=== PATIENT | female | born 1940 | race Caucasian/White ===

== ENCOUNTER 2017-03-08 12:19 | Inpatient (IN) | payer MEDICARE, OTHER ==
[~2017-03-08] VITALS: Ht 152.4 cm; Wt 71.7 kg
[~2017-03-08 12:19] MED LIST: ALBUTEROL0.63 MG/3 INH; BROVANA15 MCG/2 M INH; BUDESONIDE0.5 MG/2 M NEB; CARTIA XT180 MG PO; LISINOPRIL10 MG PO; NITROFURANTOIN100 MG PO; OXYCODONE-ACET1 EAC1 PO; PANTOPRAZOLE SO40 MG PO; RESTORIL15 MG PO; SPIRIVA HANDIH18 MCG INH; SPIRIVA18 MCG INH; TUDORZA PRESS400 MCG INH; WARFARIN SODIUM5 MG PO; Z.0.COUMADIN3 MG PO; Z.0.COUMADIN4 MG PO; Z.0.NORCO 7.5-3251 E PO; Z.0.TEMAZEPAM30 MG PO; [UNRECOGNIZED DRUG - CODE] IH
[2017-03-08] MEDS ORDERED: ALBUTEROL/IPRATROPIUM 3 ML NEB NEB ONE (13:00)
[2017-03-08] MEDS ORDERED: METHYLPREDNISOLONE SOD SUCC 125 MG/2ML VIAL IV NR (13:30)
--- NOTE | 2017-03-08 14:35 | Diagnostic Imaging Report ---
PROCEDURE: X-RAY CHEST, TWO VIEWS COMPARISON: Chest x-ray 02/12/17, 11/23/2010 INDICATIONS: COPD FINDINGS: LUNGS: Diffusely hyperinflated consistent with COPD. Mass in the right midlung field measures 1.6 x1.3 cm and is stable, suggestive of a granuloma. There is prominence of the pulmonary vascular markings and mild interstitial prominence. No confluent infiltrates. PLEURA: No effusions or pneumothorax. HEART \T\ MEDIASTINUM: The heart is enlarged. Pulmonary arteries are prominent. Several lower median sternotomy wires are fractured. BONES \T\ SOFT TISSUES: The bones are diffusely demineralized. There is wedging of a midthoracic vertebral body that appears chronic. No additional compression deformities. Surgical clips in the lower neck are stable. CONCLUSION: Pulmonary hyperinflation consistent with COPD. Cardiomegaly and pulmonary artery hypertension with pulmonary vascular congestion. Dictated by: Adam Mejia M.D. on 03/08/2017 at 14:42 Electronically approved by: Adam Mejia M.D. on 03/08/2017 at 14:42
[2017-03-08 16:43] LABS: BASOPHILS % 0.1 % (0.0-1.0); HEMATOCRIT 35.5 % (34.2-44.1); LYMPHOCYTES # (AUTO) 0.4 (1.0-3.2); LYMPHOCYTES % 4.5 % (18.0-39.1); MEAN CORPUSCULAR HEMOGLOBIN 26.7 pg (28-32); MEAN CORPUSCULAR VOLUME 86.2 fL (81-99); MONOCYTES # (AUTO) 0.6 (0.2-0.8); MONOCYTES % 7.3 % (4.4-11.3); NEUTROPHILS # (AUTO) 6.9 (2.1-6.9); NEUTROPHILS % 87.7 % (38.7-80.0); PLATELET COUNT 393 x10e3/uL (140-360); RED BLOOD COUNT 4.12 x10e6/uL (3.6-5.1); RED CELL DISTRIBUTION WIDTH 16.9 % (11.7-14.4)
[2017-03-08 16:55] LABS: INR 2.72; PROTHROMBIN TIME 30.3 seconds (11.9-14.5)
[2017-03-08 16:56] LABS: PARTIAL THROMBOPLASTIN TIME 52.4 seconds (23.8-35.5)
[2017-03-08] MEDS ORDERED: OSELTAMIVIR PHOSPHATE 75 MG CAP PO ONE (17:00)
[2017-03-08 17:06] LABS: B-TYPE NATRIURETIC PEPTIDE2 33.6 pg/mL (0-100)
[2017-03-08] MEDS ORDERED: AZITHROMYCIN 500MG/NS 250 ML 250 ML IV STA (17:13)
[2017-03-08] MEDS ORDERED: CEFTRIAXONE SOD 1 GM VIAL IM ONE (17:15)
[2017-03-08 17:20] LABS: ALANINE AMINOTRANSFERASE 10 IU/L (0-55); ALBUMIN 3.1 g/dL (3.5-5.0); ALBUMIN/GLOBULIN RATIO 0.9 (0.8-2.0); ALKALINE PHOSPHATASE 103 IU/L (40-150); ANION GAP 14.6 mmol/L (8-16); BLOOD UREA NITROGEN 21 mg/dL (7-26); BUN/CREATININE RATIO 27 (6-25); CALCIUM 8.2 mg/dL (8.4-10.2); CARBON DIOXIDE 30 mmol/L (22-29); CHLORIDE 97 mmol/L (98-107); CREATINE KINASE 85 IU/L (29-168); CREATININE, SERUM 0.77 mg/dL (0.57-1.11); EST GLOMERULAR FILTRATION RATE > 60 ML/MIN (60-); GLUCOSE 119 mg/dL (74-118); POTASSIUM 4.6 mmol/L (3.5-5.1); SODIUM 137 mmol/L (136-145)
[2017-03-08 17:26] LABS: TROPONIN I 0.035 ng/mL (0-0.300)
[2017-03-08] MEDS ORDERED: METHYLPREDNISOLONE SOD SUCC 125 MG/2ML VIAL IV ONE (17:30)
[2017-03-08] MEDS ORDERED: ALBUTEROL/IPRATROPIUM 3 ML NEB ONE (17:36)
[2017-03-08] MEDS ORDERED: AZITHROMYCIN 250 MG TAB PO SCH (17:45)
[2017-03-08] MEDS ORDERED: ALPRAZOLAM 0.25 MG TAB PO ONE (19:30)
[2017-03-08] MEDS: AZITHROMYCIN 500MG/NS 250 ML 250 ML IV SCH (19:35)
[2017-03-08] MEDS: ALBUTEROL SULF 0.083% NEB SOLN 3 ML NEB INH SCH (20:35)
[2017-03-08] MEDS: METHYLPREDNISOLONE SOD SUCC 125 MG/2ML VIAL IV SCH (21:10)
[2017-03-08] MEDS: CEFTRIAXONE SOD 1 GM VIAL IV SCH (21:20)
[2017-03-08 22:28] VITALS: BP 131/64
[2017-03-08] MEDS: TEMAZEPAM 15 MG CAP PO SCH (23:10)
[2017-03-09] VITALS (9 sets, daily range): BP systolic 122–136; BP diastolic 63–78
[2017-03-09 06:32] LABS: HEMATOCRIT 31.2 % (34.2-44.1); HEMOGLOBIN 9.5 g/dL (12.0-16.0); LYMPHOCYTES # (AUTO) 0.2 (1.0-3.2); LYMPHOCYTES % 3.8 % (18.0-39.1); MEAN CORPUSCULAR HEMOGLOBIN 26.6 pg (28-32); MEAN CORPUSCULAR HGB CONC 30.4 g/dL (31-35); MEAN CORPUSCULAR VOLUME 87.4 fL (81-99); MONOCYTES # (AUTO) 0.1 (0.2-0.8); MONOCYTES % 1.9 % (4.4-11.3); NEUTROPHILS % 93.8 % (38.7-80.0); PLATELET COUNT 277 x10e3/uL (140-360); RED BLOOD COUNT 3.57 x10e6/uL (3.6-5.1)
[2017-03-09 06:59] LABS: ALANINE AMINOTRANSFERASE 11 IU/L (0-55); ALBUMIN 2.7 g/dL (3.5-5.0); ALBUMIN/GLOBULIN RATIO 0.8 (0.8-2.0); ALKALINE PHOSPHATASE 86 IU/L (40-150); ANION GAP 12.7 mmol/L (8-16); BLOOD UREA NITROGEN 19 mg/dL (7-26); BUN/CREATININE RATIO 26 (6-25); CALCIUM 8.2 mg/dL (8.4-10.2); CARBON DIOXIDE 31 mmol/L (22-29); CHLORIDE 98 mmol/L (98-107); CREATININE, SERUM 0.74 mg/dL (0.57-1.11); EST GLOMERULAR FILTRATION RATE > 60 ML/MIN (60-); GLUCOSE 243 mg/dL (74-118); POTASSIUM 4.7 mmol/L (3.5-5.1); SODIUM 137 mmol/L (136-145)
[2017-03-09] MEDS: ALBUTEROL SULF 0.083% NEB SOLN 3 ML NEB INH SCH (08:40)
[2017-03-09] MEDS: BUDESONIDE 0.5MG/2 ML NEB NEB SCH ×2 (08:45→19:00)
[2017-03-09] MEDS: TIOTROPIUM 18 MCG INH POWDER INH SCH (08:50)
[2017-03-09] MEDS: ARFORMOTEROL TARTRATE 15 MCG INH SCH ×3 (09:00→19:55)
[2017-03-09] MEDS: OXYCODONE/ACETAMINOPHEN 5-325 1 EACH TABLET PO PRN (09:12)
[2017-03-09] MEDS: DILTIAZEM HCL 180 MG CAP CD PO SCH (09:26)
[2017-03-09] MEDS: CEFTRIAXONE SOD 1 GM VIAL IV SCH (09:26)
[2017-03-09] MEDS: METHYLPREDNISOLONE SOD SUCC 125 MG/2ML VIAL IV SCH (09:26)
[2017-03-09] MEDS: LISINOPRIL 10 MG TAB PO SCH ×2 (09:27→18:07)
[2017-03-09] MEDS: PANTOPRAZOLE SOD 40 MG TABEC PO SCH (09:27)
[2017-03-09] MEDS: OSELTAMIVIR PHOSPHATE 75 MG CAP PO SCH ×2 (09:27→18:07)
[2017-03-09] MEDS ORDERED: WARFARIN SOD 5 MG TAB PO SCH (17:00)
[2017-03-09 17:26] LABS: INR 3.34; PROTHROMBIN TIME 35.7 seconds (11.9-14.5)
[2017-03-09] MEDS ORDERED: AZITHROMYCIN 250 MG TAB PO SCH (17:45)
[2017-03-09] MEDS: AZITHROMYCIN 500MG/NS 250 ML 250 ML IV SCH (18:09)
[2017-03-09] MEDS: METHYLPREDNISOLONE SOD SUCC 40 MG/ML VIAL IV SCH (21:55)
[2017-03-09] MEDS: TEMAZEPAM 15 MG CAP PO SCH (21:55)
[2017-03-10] VITALS: BP 120/81
[2017-03-10 04:00] VITALS: BP 136/63
[2017-03-10 07:36] LABS: HEMATOCRIT 26.6 % (34.2-44.1); LYMPHOCYTES # (AUTO) 0.3 (1.0-3.2); MEAN CORPUSCULAR HEMOGLOBIN 26.6 pg (28-32); MEAN CORPUSCULAR HGB CONC 30.1 g/dL (31-35); MEAN CORPUSCULAR VOLUME 88.4 fL (81-99); MONOCYTES # (AUTO) 0.3 (0.2-0.8); MONOCYTES % 4.6 % (4.4-11.3); NEUTROPHILS # (AUTO) 6.1 (2.1-6.9); NEUTROPHILS % 89.8 % (38.7-80.0); PLATELET COUNT 263 x10e3/uL (140-360); RED BLOOD COUNT 3.01 x10e6/uL (3.6-5.1); RED CELL DISTRIBUTION WIDTH 16.1 % (11.7-14.4)
[2017-03-10 07:58] LABS: INR 3.13; PROTHROMBIN TIME 33.9 seconds (11.9-14.5)
[2017-03-10 08:10] LABS: ALANINE AMINOTRANSFERASE 18 IU/L (0-55); ALBUMIN 2.4 g/dL (3.5-5.0); ALBUMIN/GLOBULIN RATIO 0.8 (0.8-2.0); ALKALINE PHOSPHATASE 75 IU/L (40-150); ANION GAP 10.3 mmol/L (8-16); BLOOD UREA NITROGEN 26 mg/dL (7-26); BUN/CREATININE RATIO 36 (6-25); CARBON DIOXIDE 35 mmol/L (22-29); CHLORIDE 98 mmol/L (98-107); CREATININE, SERUM 0.73 mg/dL (0.57-1.11); EST GLOMERULAR FILTRATION RATE > 60 ML/MIN (60-); GLUCOSE 251 mg/dL (74-118); POTASSIUM 4.3 mmol/L (3.5-5.1); SODIUM 139 mmol/L (136-145)
[2017-03-10 08:41] VITALS: BP 110/56
[2017-03-10] MEDS: LISINOPRIL 10 MG TAB PO SCH ×2 (09:00→16:47)
[2017-03-10] MEDS: PANTOPRAZOLE SOD 40 MG TABEC PO SCH (09:00)
[2017-03-10] MEDS: DILTIAZEM HCL 180 MG CAP CD PO SCH (09:00)
[2017-03-10] MEDS: OSELTAMIVIR PHOSPHATE 75 MG CAP PO SCH ×2 (09:00→16:47)
[2017-03-10] MEDS: METHYLPREDNISOLONE SOD SUCC 40 MG/ML VIAL IV SCH ×2 (09:00→21:00)
[2017-03-10] MEDS: TIOTROPIUM 18 MCG INH POWDER INH SCH ×2 (09:15→11:19)
[2017-03-10] MEDS: BUDESONIDE 0.5MG/2 ML NEB NEB SCH ×2 (09:15→19:40)
[2017-03-10] MEDS: ALBUTEROL SULF 0.083% NEB SOLN 3 ML NEB INH PRN ×2 (09:15→19:40)
[2017-03-10] MEDS: OXYCODONE/ACETAMINOPHEN 5-325 1 EACH TABLET PO PRN (09:28)
[2017-03-10] MEDS: ARFORMOTEROL TARTRATE 15 MCG INH SCH ×2 (11:20→16:31)
[2017-03-10 12:00] VITALS: BP 117/58
[2017-03-10 16:00] VITALS: BP 111/68
[2017-03-10] MEDS ORDERED: SODIUM CHLORIDE 0.9% 250ML 250 ML ONE (16:44)
[2017-03-10] MEDS: AZITHROMYCIN 500MG/NS 250 ML 250 ML IV SCH (17:40)
[2017-03-10 20:00] VITALS: BP 106/62
[2017-03-10] MEDS: TEMAZEPAM 15 MG CAP PO SCH (21:00)
[2017-03-11] VITALS: BP 112/63
[2017-03-11 01:58] VITALS: BP 112/63
[2017-03-11 04:00] VITALS: BP 124/66
[2017-03-11] MEDS: OXYCODONE/ACETAMINOPHEN 5-325 1 EACH TABLET PO PRN (04:24)
--- NOTE | 2017-03-11 05:55 | Consultation ---
DATE OF CONSULTATION: REQUESTING PHYSICIAN: Dr. Cesar Washburn. REASON FOR CONSULT: PAD. HISTORY OF PRESENT ILLNESS: Ms. Paz is a 77-year-old lady with past medical history as listed below, reportedly has been short of breath off and on for the last few days. 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 She was admitted with exacerbation of COPD directly from Dr. Cesar Washburn's office. She denies any chest pain or palpitations. She denies any fever. Has some scant amount of expectoration. She recently had a CT of her legs which revealed severe PAD. Patient states that she does not want to undergo any peripheral angiogram at the current time. She was recently admitted to the hospital at which time if there was any kind of invasive workup including colonoscopy. REVIEW OF SYMPTOMS CONSTITUTIONAL: Has fatigue and weakness. HEENT: No headache, blurring of vision, seizures, or syncope. CARDIOVASCULAR: No chest pain. Has dyspnea. No orthopnea or PND. RESPIRATORY: Has cough, scant amount of expectoration. No fever. GI: No abdominal pain, vomiting, or diarrhea. : No dysuria, frequency, or incontinence. ALLERGIES: CODEINE, PENICILLIN, AND CLOPIDOGREL. MEDICATIONS: See list. PAST MEDICAL HISTORY 1. History of COPD. 2. History of hypertension. 3. History of anemia. 3. History of PAD. 4. History of aortic valve replacement, prosthetic. 5. History of GI bleed in December 2016. PAST SURGICAL HISTORY: History of aortic valve replacement, 2010. SOCIAL HISTORY: Does not smoke or drink. FAMILY HISTORY: Noncontributory. PHYSICAL EXAMINATION GENERAL: Moderately built and nourished lady, alert, oriented, not in any obvious distress. VITALS: Heart rate is 79, blood pressure 110/56, respiratory rate 16, and temperature is 97.5. HEENT: Atraumatic. NECK: No JVD, bruit, thyromegaly, or lymphadenopathy. CARDIOVASCULAR: First and second heart sounds heard. Prosthetic heart sounds appreciated. CHEST: Decreased air entry at the bases. No adventitious sounds appreciated. ABDOMEN: Distended, nontender. EXTREMITIES: No edema. LABORATORY DATA: Sodium is 139, potassium 4.3, chloride is 98, bicarb is 35, BUN is 26, and creatinine 0.7. Hemoglobin 8.2, hematocrit 26.6, platelets are 263,000. White count is 6.7. EKG shows sinus rhythm, 92 beats per minute, normal axis, normal intervals, no acute ST-T changes. IMPRESSIONS 1. Chronic obstructive pulmonary disease exacerbation. 2. History of prosthetic aortic valve. 3. Peripheral arterial disease. 4. History of gastrointestinal bleed. 5. Anemia. 6. History of hypertension. PLAN 1. Continue with antibiotics and steroids. 2. She had an echocardiogram done recently. 3. She has severe PAD on her CT scan. She was supposed to have peripheral angiogram as an outpatient. Discussed about having a peripheral angiogram as an inpatient. Patient does not want to undergo the procedure at the current time. 4. Continue with the other medications. 5. INR is 3.1. 6. Further cardiac workup depending on clinical course. Discussed my impression, plan, and management with patient; she understands. As always, I appreciate and thank you very much for your referral. Job#: [id number]
[2017-03-11 06:40] LABS: INR 2.03
[2017-03-11] MEDS: ALBUTEROL SULF 0.083% NEB SOLN 3 ML NEB INH PRN (07:00)
[2017-03-11] MEDS: BUDESONIDE 0.5MG/2 ML NEB NEB SCH (07:14)
--- NOTE | 2017-03-11 07:23 | Progress Note ---
DATE: PULMONARY/CRITICAL CARE PROGRESS NOTE SUBJECTIVE: The patient feels much better. She has less congestion and less cough. OBJECTIVE: VITAL SIGNS: Stable. HEENT: Shows no facial swelling or erythema. CARDIAC: Reveals a regular rate and rhythm with a normal S1 and S2. There are no murmurs or rubs. LUNGS: Auscultation of the lungs reveals clear breath sounds bilaterally. ABDOMEN: Soft and nontender. There is no rebound or guarding. IMPRESSION: 1. Influenza with viral pneumonia. 2. Chronic obstructive pulmonary disease with acute exacerbation. 3. Peripheral vascular disease with claudication bilaterally. 4. Chronic systolic congestive heart failure. 5. Paroxysmal atrial fibrillation. 6. Hypertension. PLAN: 1. Continue the current antimicrobial regimen. 2. Patient was evaluated by cardiology. 3. Tentative discharge tomorrow. Job#: [id number]
[2017-03-11 07:30] VITALS: BP 124/66
--- NOTE | 2017-03-11 07:35 | Progress Note ---
DATE: PULMONARY/CRITICAL CARE PROGRESS NOTE SUBJECTIVE: Patient was transferred out of the ICU yesterday. She was on BiPAP last night, but is now on a nasal cannula. She complains of a dry mouth and is bothered by her NG tube. She is more awake. OBJECTIVE: VITAL SIGNS: The blood pressure is 110/60 and the saturation is 96% on 2 L. The pulse is 86. HEENT: Shows no facial swelling or erythema. The nasal mucosa is normal. The oropharynx is normal. She does have an NG tube in place. CARDIAC: Reveals a regular rate and rhythm with a normal S1 and S2. There are no murmurs or rubs. LUNGS: Auscultation of the lungs reveals clear breath sounds bilaterally. There is no wheezing. ABDOMEN: Soft and nontender. There is no rebound or guarding. EXTREMITIES: Shows no leg edema or calf tenderness. There is no cyanosis or clubbing. SKIN: Shows no rashes. IMPRESSION: 1. Rhgok-nt-kygxtux systolic congestive heart failure. 2. 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 3. Chronic obstructive pulmonary disease. 4. Cirrhosis of unclear etiology. 5. Moderate protein-calorie malnutrition. 6. Possible obstructive sleep apnea. PLAN: 1. Continue BiPAP at night. The patient can use oxygen during the day. 2. Continue current cardiac regimen. 3. Decrease diuretics because of the increasing creatinine. 4. Swallowing evaluation. 5. If okay with Dr. Boudreaux, remove NG tube and begin mechanical soft diet. 6. Physical therapy evaluation. Job#: [id number]
[2017-03-11 08:14] VITALS: BP 111/75
[2017-03-11] MEDS: OSELTAMIVIR PHOSPHATE 75 MG CAP PO SCH (09:00)
[2017-03-11] MEDS: LISINOPRIL 10 MG TAB PO SCH (09:00)
[2017-03-11] MEDS: PANTOPRAZOLE SOD 40 MG TABEC PO SCH (09:00)
[2017-03-11] MEDS: ARFORMOTEROL TARTRATE 15 MCG INH SCH (09:00)
[2017-03-11] MEDS: DILTIAZEM HCL 180 MG CAP CD PO SCH (09:00)
[2017-03-11] MEDS ORDERED: TAMIFLU75 MG PO (10:14)
[2017-03-11] MEDS ORDERED: AZITHROMYCIN250 MG PO (10:14)
[2017-03-11] MEDS ORDERED: WARFARIN SOD 5 MG TAB PO SCH (17:00)
== END 2017-03-11 11:25 | disposition home or self-care (01) | DRG 190 ==
LOC: ER 12:19 → ERHOLD 18:30 → IMCU 21:06 → OBSVTOIN 03-09 13:04 → MED/SURG2 03-10 11:05
PROVIDERS: ADMIT Internal Medicine Critical Care Medicine; ATTEND Internal Medicine Critical Care Medicine
DX: J44.0 Chronic obstructive pulmonary disease with (acute) lower respiratory infection (principal); J11.08 Influenza due to unidentified influenza virus with specified pneumonia; J12.9 Viral pneumonia, unspecified; E44.0 Moderate protein-calorie malnutrition; I11.0 Hypertensive heart disease with heart failure; I50.9 Heart failure, unspecified; I48.0 Paroxysmal atrial fibrillation; J44.1 Chronic obstructive pulmonary disease with (acute) exacerbation; I25.10 Atherosclerotic heart disease of native coronary artery without angina pectoris; Z79.01 Long term (current) use of anticoagulants; Z95.2 Presence of prosthetic heart valve; I73.9 Peripheral vascular disease, unspecified; D64.9 Anemia, unspecified; G47.33 Obstructive sleep apnea (adult) (pediatric); K74.60 Unspecified cirrhosis of liver; Z66 Do not resuscitate; Z86.73 Personal history of transient ischemic attack (TIA), and cerebral infarction without residual deficits
CPT/HCPCS: 36415; 71020; 80053; 82550; 82553; 83605; 83880; 84484; 85025; 85610; 85730; 87040; 87070; 87205; 87400; 93005; 94640; 96360; 99284; G0378; J0456; J0696; J2920; J2930; J7050

== ENCOUNTER 2017-06-22 11:45 | Inpatient (IN) | payer MEDICARE, OTHER ==
[~2017-06-22] VITALS: Ht 152.4 cm; Wt 67.6 kg
[~2017-06-22 11:45] MED LIST changes: +AZITHROMYCIN250 MG PO; +TAMIFLU75 MG PO
--- OUTSIDE RECORDS SUMMARY | 2017-06-22 11:48 | XMS REPORT | Summary of Care ---
Author Author LEVI Osborne, RICHA Organization Unknown Address Unknown Phone Unavailable Care Team Providers Care Tannery Worker Name Role Phone DIMAS Meléndez.Willis, JASMINA Unavailable Unavailable LOWShy-COTTRELL D.O., RICHA Unavailable Unavailable YEH D.O., CARLTON-DORA Unavailable Unavailable YEH DO [facility], CARLTON-DORA Unavailable Unavailable Unavailable Unavailable Functional Status Name Dates Details Functional status health issues are not documented Status: Name Dates Details Cognitive status health issues are not documented Status: Problems Name Dates Details Leg cramps (729.82, R25.2) Status: Active Need for Tdap vaccination (V06.1, Z23) Status: Active Atrial fibrillation (427.31, I48.91) Status: Active Urinary tract infection (599.0, N39.0) Status: Active Anemia, unspecified type (285.9, D64.9) Status: Active Wound of skin (782.9, R23.8) Status: Active Hip pain, bilateral (719.45, M25.551) Status: Active Gastro-esophageal reflux (530.81, K21.9) Status: Active Chronic insomnia (780.52, F51.04) Status: Active Skin rash (782.1, R21) Status: Active Chronic obstructive pulmonary disease, unspecified COPD type (496, J44.9) Status: Active Impaired mobility and ADLs (799.89, Z74.09) Status: Active History of skin cancer (V10.83, Z85.828) Status: Active Medications Name Dates Details Oxycodone-Acetaminophen 5-325 MG/5ML Oral Solution TAKE 5 ML EVERY 6 HOURS. * Start : 23-Jan-2017 Active Temazepam 30 MG Oral Capsule TAKE 1 CAPSULE BY MOUTH EVERY DAY AT BEDTIME * Quantity: 30 Refills: 1 VICIKE-COTTRELL D.O., RICHA * Start : 23-Jan-2017 Active LORazepam 0.5 MG Oral Tablet TAKE 1 TABLET 3 TIMES DAILY NEEDED. * Refills: 0 * Start : 23-Jan-2017 Active Cartia XT 180 MG Oral Capsule Extended Release 24 Hour TAKE ONE CAPSULE BY MOUTH DAILY * Quantity: 90 Refills: 0 MELODY WU D.O. * Start : 10-May-2017 Active Lisinopril 10 MG Oral Tablet TAKE 1 TABLET DAILY * Refills: 0 * Start : 23-Jan-2017 Active 15 Tablet Bottle Warfarin Sodium 5 MG Oral Tablet TAKE 1 TABLET SATURDAY, SATURDAY, SATURDAY, TAKE 1/2 TABLET SATURDAY, SATURDAY, SATURDAY, SATURDAY * Refills: 0 * Start : 23-Jan-2017 Active 90 Tablet Bottle Brovana 15 MCG/2ML Inhalation Nebulization Solution INHALE THE CONTENTS OF 1 VIAL TWO TIMES DAILY IN THE MORNING AND EVENING VIA STANDARD JET NEBULIZER DIRECTED. * Refills: 0 * Start : 23-Jan-2017 Active 30 x 2 ML Plas Cont Albuterol Sulfate 0.63 MG/3ML Inhalation Nebulization Solution USE 1 UNIT DOSE VIA NEBULIZER 4 TIMES A DAY NEEDED * Refills: 0 * Start : 23-Jan-2017 Active 25 x 3 ML Plas Cont Ferrous Sulfate 325 (65 Fe) MG Oral Tablet TAKE 1 TABLET TWICE DAILY * Quantity: 30 Refills: 0 RICHA SIMS D.O. * Start : 21-Feb-2017 Active Tylenol CAPS USE NEEDED * Refills: 0 Active Tums CHEW take as needed * Refills: 0 Active MiraLax Oral Packet 2-3 TIMES A WEEK NEEDED * Refills: 0 Active Cough SYRP as needed * Refills: 0 Active Famotidine 40 MG Oral Tablet TAKE 1 TABLET AT BEDTIME. * Quantity: 30 Refills: 5 JASMINA COCHRAN N.P. * Start : 07-May-2017 Active Budesonide SUSP USE 1 UNIT DOSE VIA NEBULIZER TWICE DAILY * Refills: 0 Active Spiriva HandiHaler 18 MCG Inhalation Capsule INHALE CONTENTS OF 1 CAPSULE ONCE DAILY. * Quantity: 30 Refills: 5 RICHA SIMS D.O. * Start : 18-Jun-2017 Active Allergies and Adverse Reactions Name Dates Details Penicillins (Allergy) Status: Active Past Medical History Name Dates Details History of essential hypertension (V12.59, Z86.79) Status: Resolved Procedures Procedure Dates Details History of Heart valve replacement Completed History of Lumpectomy Completed History of Cataract surgery Completed History of Hysterectomy Completed Immunization Name Dates Details Influenza on: 19-Nov-2016 Prevnar 13 Intramuscular Suspension Lot #: [id number] on: 23-Jan-2017 Family History Name Dates Details Family history of asthma (V17.5, Z82.5) Status: Active Name Dates Details Family history of diabetes mellitus (V18.0, Z83.3) Status: Active Family history of asthma (V17.5, Z82.5) Status: Active Name Dates Details Family history of diabetes mellitus (V18.0, Z83.3) Status: Active Name Dates Details Family history of hypertension (V17.49, Z82.49) Status: Active Family history of asthma (V17.5, Z82.5) Status: Active Social History Name Dates Details - Status: Name Dates Details Former smoker Vital Signs Date Test Result Details [id number] BP Systolic 124 mm[Hg] Status: Comments: Location: LUE; Position: Sitting BP Diastolic 67 mm[Hg] Status: Comments: Location: LUE; Position: Sitting Height 61 in Status: Weight 147.0625 lb Status: Body Mass Index Calculated 27.79 kg/m2 Status: Body Surface Area Calculated 1.66 m2 Status: Temperature 98.4 f Status: Comments: Method: Temporal Heart Rate 81 /min Status: Respiration Rate 20 /min Status: Physical Findings 2 Status: Comments: Pain Scale Physical Findings 2 Status: Comments: Oxygen Flow Rate - LPM Results Date Description Value Details Results not documented Plan of Care Name Dates Details Planned Observations Planned Goals not documented Interventions Provided Medication Changes* Ferrous Sulfate 325 (65 Fe) MG Oral Tablet - Renew * Spiriva HandiHaler 18 MCG Inhalation Capsule - Start * Temazepam 30 MG Oral Capsule - Renew Supplies* ROLLATOR; To Be Done: 18 Jun 2017 * SHOWER CHAIR; To Be Done: 18 Jun 2017 Instructions Name Dates Details Instructions not documented Encounters Appointment; MELODY WU D.O. Encounter Diagnosis: Problem not documented On: 23-Jan-2017 14:45 Appointment; MELODY WU D.O. Encounter Diagnosis: Problem not documented On: 11-Feb-2017 14:00 Appointment; YEH, CARLTON-DORA, D.O. Encounter Diagnosis: Problem not documented On: 21-Feb-2017 9:15 Appointment; Carlos Andrews M.D. Encounter Diagnosis: Problem not documented On: 05-Mar-2017 9:45 Appointment; ALISHA RUSSELL M.D. Encounter Diagnosis: Problem not documented On: 05-Mar-2017 13:00 Appointment; JASMINA COCHRAN NP Encounter Diagnosis: Problem not documented On: 07-May-2017 13:30 Appointment; MELODY WU D.O. Encounter Diagnosis: Problem not documented On: 18-Jun-2017 14:00
--- OUTSIDE RECORDS SUMMARY | 2017-06-22 11:48 | XMS REPORT ---
Author [facility] Address Unknown Phone Unavailable Care Team Providers Care Trials Manager Name Role Phone KINGSTONOMERO GILLESPIE Unavailable Unavailable FLETCHER ARAIZA Unavailable Unavailable Problems This patient has no known problems. Allergies, Adverse Reactions, Alerts This patient has no known allergies or adverse reactions. Medications This patient has no known medications. Results Test Description Test Time Test Comments Text Results Atomic Results Result Comments CHEST 2 VIEWS [place] [address] Patient Name: HOWARD MUHAMMAD MR #: [id number] : 1940 Age/Sex: 77/F Req #: [id number] Adm Physician: Ordered by: BEATRICE [employer] SUPERVISOR Report #: [id number] Location: ER Room/Bed: Procedure: [id number] DX/CHEST 2 VIEWS Exam Date: Exam Time: REPORT STATUS: Signed PROCEDURE: X-RAY CHEST, TWO VIEWS COMPARISON: Chest x-ray 02/12/17, 11/23/2010 INDICATIONS: COPD FINDINGS: LUNGS: Diffusely hyperinflated consistent with COPD. Mass in the right midlung field measures 1.6 x1.3 cm and is stable, suggestive of a granuloma. There is prominence of the pulmonary vascular markings and mild interstitial prominence. No confluent infiltrates. PLEURA: No effusions or pneumothorax. HEART T MEDIASTINUM: The heart is enlarged. Pulmonary arteries are prominent. Several lower median sternotomy wires are fractured. BONES T SOFT TISSUES: The bones are diffusely demineralized. There is wedging of a midthoracic vertebral body that appears chronic. No additional compression deformities. Surgical clips in the lower neck are stable. CONCLUSION: Pulmonary hyperinflation consistent with COPD. Cardiomegaly and pulmonary artery hypertension with pulmonary vascular congestion. Dictated by: Kt Mejia M.D. on 03/08/2017 at 14:42 Electronically approved by: Kt Mejia M.D. on 03/08/2017 at 14:42 Dictated By: KT MEJIA MD [id number] Transcribed By : CATHLEEN on 03/08/17 1442 COPY TO: BEATRICE [employer] SUPERVISOR CHEST SINGLE (PORTABLE) [place] [address] Patient Name: HOWARD MUHAMMAD MR #: [id number] : 1940 Age/Sex: 77/F Req #: [id number] Adm Physician: Ordered by: BEATRICE EASLEY MD Report #: [id number] Location: ER Room/Bed: ___ Procedure: [id number] DX/CHEST SINGLE (PORTABLE) Exam Date: 02/12/17 Exam Time: 2014 REPORT STATUS: Signed Examination: Single AP view of the chest. COMPARISON: None. INDICATION : Shortness of breath IMPRESSION: 1. Lines and Tubes: Multiple broken sternotomy wires. 2. No edema or consolidation. 1.4 x 1.4 cm nodular density in the right lower lung, which is indeterminate.Recommend nonemergent contrast-enhanced chest CT for further evaluation. 3. Mildly enlarged cardiac silhouette and prominence of the central pulmonary arteries, in part accentuated by AP projection. 4. No pleural effusion or pneumothorax. Signed by: Dr Kyle Marx MD on 02/12/2017 10:23 PM Dictated By: YKLE MARX MD 22 Transcribed By: YUDY on 02/12/172222 COPY TO: BEATRICE EASLEY MD
[2017-06-22] MEDS ORDERED: METHYLPREDNISOLONE SOD SUCC 125 MG/2ML VIAL IV ONE (12:30)
[2017-06-22] MEDS ORDERED: ALBUTEROL/IPRATROPIUM 3 ML NEB NEB ONE (13:00)
[2017-06-22 14:06] LABS: BASOPHILS # (AUTO) 0.1 (0.0-0.1); BASOPHILS % 0.3 % (0.0-1.0); EOSINOPHILS % 0.1 % (0.0-6.0); HEMATOCRIT 35.1 % (34.2-44.1); HEMOGLOBIN 11.4 g/dL (12.0-16.0); LYMPHOCYTES # (AUTO) 0.5 (1.0-3.2); LYMPHOCYTES % 2.5 % (18.0-39.1); MEAN CORPUSCULAR HEMOGLOBIN 27.3 pg (28-32); MEAN CORPUSCULAR HGB CONC 32.5 g/dL (31-35); MEAN CORPUSCULAR VOLUME 84.2 fL (81-99); MONOCYTES # (AUTO) 1.3 (0.2-0.8); MONOCYTES % 6.4 % (4.4-11.3); NEUTROPHILS # (AUTO) 18.6 (2.1-6.9); NEUTROPHILS % 90.3 % (38.7-80.0); PLATELET COUNT 375 x10e3/uL (140-360); RED BLOOD COUNT 4.17 x10e6/uL (3.6-5.1); RED CELL DISTRIBUTION WIDTH 18.7 % (11.7-14.4)
[2017-06-22 14:15] LABS: INR 1.75; PROTHROMBIN TIME 19.2 seconds (11.9-14.5)
[2017-06-22 14:16] LABS: PARTIAL THROMBOPLASTIN TIME 39.9 seconds (23.8-35.5)
[2017-06-22 14:25] LABS: ALBUMIN 2.9 g/dL (3.5-5.0); ALBUMIN/GLOBULIN RATIO 0.6 (0.8-2.0); ALKALINE PHOSPHATASE 122 IU/L (40-150); BLOOD UREA NITROGEN 13 mg/dL (7-26); BUN/CREATININE RATIO 16 (6-25); CALCIUM 9.5 mg/dL (8.4-10.2); CARBON DIOXIDE 28 mmol/L (22-29); CHLORIDE 97 mmol/L (98-107); CREATININE, SERUM 0.79 mg/dL (0.57-1.11); EST GLOMERULAR FILTRATION RATE > 60 ML/MIN (60-); GLUCOSE 125 mg/dL (74-118); SODIUM 136 mmol/L (136-145)
[2017-06-22 14:27] LABS: ALANINE AMINOTRANSFERASE < 6 IU/L (0-55)
[2017-06-22 14:55] LABS: CREATINE KINASE 42 IU/L (29-168)
--- NOTE | 2017-06-22 15:11 | Diagnostic Imaging Report ---
EXAMINATION: CHEST SINGLE (PORTABLE) INDICATION: Low oxygen. Shortness of breath. COMPARISON: Chest x-ray 03/08/2017. 11/23/2010. FINDINGS: AP view TUBES and LINES: Median sternotomy wires are intact. LUNGS: Lungs are hypo-inflated when compared to prior examination. Baseline emphysematous changes. 1.3 cm calcified granuloma in the right lateral lung base is unchanged. There are bibasilar atelectasis. Left basilar atelectasis and/or consolidation. PLEURA: No pleural effusion or pneumothorax. HEART AND MEDIASTINUM: The cardiomediastinal silhouette is unremarkable. There are atherosclerotic calcifications within the aorta. BONES AND SOFT TISSUES: No acute osseous lesion. Soft tissues are unremarkable. UPPER ABDOMEN: No free air under the diaphragm. IMPRESSION: 1. New central pulmonary venous congestion. 2. Left basilar atelectasis and/or consolidation. Signed by: Dr. Timoteo Valdez M.D. on 06/22/2017 3:07 PM
[2017-06-22] MEDS ORDERED: CEFTRIAXONE SOD 1 GM VIAL IM ONE (16:30)
[2017-06-22] MEDS ORDERED: CEFTRIAXONE SOD 1 GM VIAL IV SCH (16:45)
[2017-06-22] MEDS ORDERED: AZITHROMYCIN 250 MG TAB PO STA (16:49)
[2017-06-22] MEDS ORDERED: AZITHROMYCIN 500MG/SOD CHL 0.9% 250ML BAG IV SCH (17:00)
[2017-06-22] MEDS ORDERED: AZITHROMYCIN 500MG/NS 250 ML 250 ML IV SCH (17:00)
[2017-06-22 19:00] VITALS: BP 103/72
[2017-06-22] MEDS ORDERED: ZOLPIDEM TARTRATE 10 MG TAB PO PRN (19:00)
[2017-06-22] MEDS ORDERED: LIDOCAINE 5% PATCH TP PRN (19:15)
[2017-06-22 20:00] VITALS: BP 103/72
[2017-06-22] MEDS: ALBUTEROL SULF 0.083% NEB SOLN 3 ML NEB INH SCH (20:05)
[2017-06-22] MEDS ORDERED: BROVANA15 MCG/2 M INH (20:23)
[2017-06-22] MEDS ORDERED: SENNA LAXATIVE1 EACH PO (20:23)
[2017-06-22] MEDS ORDERED: LUBRICANT EYE1 EACH OP (20:23)
[2017-06-22] MEDS ORDERED: COLACE100 MG PO (20:23)
[2017-06-22] MEDS ORDERED: SODIUM CHLORIDE 0.9% 250ML 250 ML ONE (22:58)
--- NOTE | 2017-06-22 23:11 | Diagnostic Imaging Report ---
Examination: Single AP view of the chest. COMPARISON: 06/22/2017 INDICATION: PICC placement IMPRESSION: 1. Lines and Tubes: Right PICC line seen projecting near cavoatrial junction. Multiple broken sternotomy wires. 2. Stable cardiomegaly with central vascular congestion. Unchanged 1.4 cm right lower lobe nodule, described on CT from 2010. 3. No pleural effusion or pneumothorax. Signed by: Dr Prisca Marx MD on 06/22/2017 11:07 PM
[2017-06-22] MEDS: TEMAZEPAM 15 MG CAP PO SCH (23:13)
[2017-06-22] MEDS: METHYLPREDNISOLONE SOD SUCC 40 MG/ML VIAL IV SCH (23:13)
[2017-06-23] VITALS (7 sets, daily range): BP systolic 98–129; BP diastolic 51–80
--- NOTE | 2017-06-23 01:20 | History and Physical ---
CHIEF COMPLAINT: Worsening dyspnea and productive cough. HISTORY OF PRESENT ILLNESS: The patient is a 77-year-old woman. She has a history of COPD, and a prosthetic heart valve. She also has peripheral arterial disease. She was hospitalized at [facility] in March with COPD exacerbation. She now complains of worsening dyspnea and cough. She has phlegm production. The phlegm is yellow. She notes worsening dyspnea. Her symptoms have not been relieved with antibiotics and steroids as an outpatient. She has been using her nebulizer more frequently at home without relief. PAST SURGICAL HISTORY 1. Status post aortic valve replacement with a prosthetic valve. 2. Status post colonoscopy for a GI bleed. PAST MEDICAL HISTORY 1. COPD as noted above. 2. Severe peripheral vascular disease. 3. Anemia. 4. Hypertension. SOCIAL HISTORY: The patient is not a smoker or drinker. She recently relocated to the [facility] to live with her daughter. FAMILY HISTORY: Family history is noncontributory. REVIEW OF SYSTEMS: The patient is afebrile. She does not complain of headache or neck pain. She does not have any sore throat. She does not have any chest pain. She does have some cough and congestion. She has more dyspnea and more wheezing. She does not note any abdominal pain or vomiting. She does have diarrhea. She has some leg pain with walking. She also complains of some left shoulder pain. PHYSICAL EXAMINATION VITAL SIGNS: The patient is afebrile. The blood pressure 116/42 and the O2 saturation is 98% on 2 L. The pulse is 81. HEENT: No facial swelling or erythema. The nasal mucosa is normal. The oropharynx is normal. LYMPHATICS: No submandibular, cervical or supraclavicular adenopathy. CARDIAC: Regular rate and rhythm with a normal S1 and S2. There is a prosthetic heart sound. LUNGS: Auscultation reveals rhonchus breath sounds bilaterally. There is no wheezing. ABDOMEN: Soft and nontender. There is no rebound or guarding. EXTREMITIES: No leg edema or calf tenderness. There is no cyanosis or clubbing. SKIN: No rashes. There is a lesion on the dorsal aspect of the left forearm that suggests squamous cell carcinoma. LABORATORY DATA: White blood cell count is 20.6 and hemoglobin is 11.4. The BUN to creatinine ratio is normal. The other electrolytes are within normal limits. The INR is 1.75. IMPRESSIONS 1. Moyzt-ka-ftlgoap respiratory failure. 2. Chronic obstructive pulmonary disease exacerbation. 3. Community-acquired pneumonia. 4. Diarrhea of unclear etiology. 5. Moderate protein-calorie malnutrition. 6. Prosthetic aortic valve. PLAN 1. The patient will be started on appropriate antibiotics. 2. She will be hernandez cultured. 3. Corticosteroids at 1 mg/kg per day. 4. Continue bronchodilators. 5. Stool for C. diff. 6. We have increased Coumadin slightly in order to bring her INR into the 2-3 range, which would be minimum for a prosthetic valve. Job#: [id number] CQ
[2017-06-23] MEDS: OXYCODONE/ACETAMINOPHEN 5-325 1 EACH TABLET PO PRN (05:34)
[2017-06-23 05:37] LABS: BASOPHILS % 0.1 % (0.0-1.0); HEMATOCRIT 25.9 % (34.2-44.1); HEMOGLOBIN 8.2 g/dL (12.0-16.0); LYMPHOCYTES # (AUTO) 0.3 (1.0-3.2); LYMPHOCYTES % 2.2 % (18.0-39.1); MEAN CORPUSCULAR HEMOGLOBIN 26.5 pg (28-32); MEAN CORPUSCULAR HGB CONC 31.7 g/dL (31-35); MEAN CORPUSCULAR VOLUME 83.8 fL (81-99); MONOCYTES # (AUTO) 0.1 (0.2-0.8); MONOCYTES % 0.7 % (4.4-11.3); NEUTROPHILS % 96.5 % (38.7-80.0); PLATELET COUNT 389 x10e3/uL (140-360); RED BLOOD COUNT 3.09 x10e6/uL (3.6-5.1); RED CELL DISTRIBUTION WIDTH 18.7 % (11.7-14.4)
[2017-06-23 05:50] LABS: PROTHROMBIN TIME 21.3 seconds (11.9-14.5)
[2017-06-23 05:51] LABS: BILIRUBIN,URINE NEGATIVE (NEGATIVE); CLARITY,URINE CLEAR (CLEAR); COLOR,URINE YELLOW (YELLOW); KETONES,URINE TRACE (NEGATIVE); LEUKOCYTE ESTERASE ,URINE TRACE (NEGATIVE); NITRITE,URINE POSITIVE (NEGATIVE); PROTEIN,URINE DIPSTICK TRACE (NEGATIVE); URINE UROBILINOGEN 0.2 mg/dL (0.2 - 1)
[2017-06-23 05:54] LABS: BACTERIA,URINE MANY /HPF; EPITHELIAL CELLS,URINE FEW /LPF; RBC,URINE 0-5 /HPF (0-5)
[2017-06-23 05:54] LABS: ANION GAP 13.8 mmol/L (8-16); BLOOD UREA NITROGEN 13 mg/dL (7-26); BUN/CREATININE RATIO 17 (6-25); CALCIUM 9.2 mg/dL (8.4-10.2); CARBON DIOXIDE 27 mmol/L (22-29); CHLORIDE 98 mmol/L (98-107); CREATININE, SERUM 0.78 mg/dL (0.57-1.11); EST GLOMERULAR FILTRATION RATE > 60 ML/MIN (60-); GLUCOSE 254 mg/dL (74-118); POTASSIUM 3.8 mmol/L (3.5-5.1); SODIUM 135 mmol/L (136-145)
[2017-06-23 06:08] LABS: CREATINE KINASE 38 IU/L (29-168)
[2017-06-23] MEDS: TIOTROPIUM 18 MCG INH POWDER INH SCH (07:15)
[2017-06-23] MEDS: ALBUTEROL SULF 0.083% NEB SOLN 3 ML NEB INH SCH ×4 (07:15→19:45)
[2017-06-23] MEDS: BUDESONIDE 0.5MG/2 ML NEB NEB SCH ×2 (07:20→20:05)
[2017-06-23] MEDS: ARFORMOTEROL TARTRATE 15 MCG INH SCH ×2 (07:25→19:50)
[2017-06-23] MEDS: DILTIAZEM HCL 180 MG CAP CD PO SCH (08:15)
[2017-06-23] MEDS: METHYLPREDNISOLONE SOD SUCC 40 MG/ML VIAL IV SCH ×2 (08:15→21:00)
[2017-06-23] MEDS: PANTOPRAZOLE SOD 40 MG TABEC PO SCH (08:15)
[2017-06-23] MEDS ORDERED: LISINOPRIL 2.5 MG TAB PO SCH (09:00)
[2017-06-23] MEDS ORDERED: NICOTINE 21 MG/EA PATCH TOP SCH (09:00)
[2017-06-23] MEDS ORDERED: NICOTINE 21 MG/EA PATCH TOP PRN (10:45)
[2017-06-23 13:03] LABS: CREATINE KINASE 38 IU/L (29-168)
[2017-06-23] MEDS ORDERED: WARFARIN SOD 5 MG TAB PO SCH (17:00)
[2017-06-23] MEDS: WARFARIN SOD 5 MG TAB PO SCH (17:03)
[2017-06-23] MEDS: LISINOPRIL 2.5 MG TAB PO SCH (20:41)
[2017-06-23] MEDS: TEMAZEPAM 15 MG CAP PO SCH (22:00)
[2017-06-23] MEDS: AZITHROMYCIN 500MG/NS 250 ML 250 ML IV SCH (22:30)
[2017-06-23] MEDS: CEFTRIAXONE SOD 1 GM VIAL IV SCH (23:30)
[2017-06-24] VITALS (7 sets, daily range): BP systolic 100–123; BP diastolic 56–66
[2017-06-24] MEDS: TIOTROPIUM 18 MCG INH POWDER INH SCH (06:00)
[2017-06-24] MEDS: OXYCODONE/ACETAMINOPHEN 5-325 1 EACH TABLET PO PRN (06:54)
[2017-06-24] MEDS: ALBUTEROL SULF 0.083% NEB SOLN 3 ML NEB INH SCH ×4 (07:00→19:33)
[2017-06-24] MEDS: ARFORMOTEROL TARTRATE 15 MCG INH SCH ×2 (07:00→19:00)
[2017-06-24] MEDS: BUDESONIDE 0.5MG/2 ML NEB NEB SCH ×2 (07:00→19:33)
[2017-06-24 07:22] LABS: PROTHROMBIN TIME 21.3 seconds (11.9-14.5)
[2017-06-24] MEDS: PANTOPRAZOLE SOD 40 MG TABEC PO SCH (07:30)
[2017-06-24] MEDS: METHYLPREDNISOLONE SOD SUCC 40 MG/ML VIAL IV SCH ×2 (09:00→22:00)
[2017-06-24] MEDS: DILTIAZEM HCL 180 MG CAP CD PO SCH (09:00)
[2017-06-24] MEDS: WARFARIN SOD 5 MG TAB PO SCH (17:00)
[2017-06-24] MEDS ORDERED: LIDOCAINE HCL 2% JELLY 5 ML TUBE TOP PRN ×2 (17:45)
--- NOTE | 2017-06-24 18:41 | Consultation ---
DATE OF CONSULTATION: June 24, 2017 PODIATRY CONSULTATION CHIEF COMPLAINT: Pain and discomfort of bilateral feet, particularly left great toe and 5th digit right foot. REASON FOR ADMISSION: Worsening dyspnea and productive cough. HISTORY OF PRESENT ILLNESS: Mrs. Paz is a pleasant 77-year-old female admitted once again secondary to worsening dyspnea and productive cough with COPD exacerbation, currently being managed by Dr. Washburn of pulmonology. However, within the last several days has been complaining of pain associated to bilateral feet, and I have been asked to evaluate and treat. PAST MEDICAL HISTORY: COPD, peripheral vascular disease, anemia, hypertension. SURGICAL HISTORY: Aortic valve replacement, colonoscopy for a GI bleed. SOCIAL HISTORY: No history of alcohol, tobacco or illicit drug use. ELEVEN-POINT REVIEW OF SYSTEMS: Otherwise negative. FAMILY HISTORY: Noncontributory. PHYSICAL EXAMINATION VITAL SIGNS: Stable. She is afebrile. Namely 97.5, pulse 77, respiratory rate is 20, and blood pressure is 114/66. GENERAL: AO x3. NAD. HEENT: Normocephalic, atraumatic, anicteric. ABDOMEN: Soft, nontender, nondistended. RESPIRATORY: Symmetrical expansion, at this point no distress. PSYCHIATRIC: Normal affect. EXTREMITIES: Incurvation to the nail plate of left great toe with some erythema, edema, tenderness upon direct palpation. No acute pathology. Right foot, particularly 5th digit nail laterally seems to be loose and tender with no active bleeding, however. No soft-tissue emphysema, no signs of lymphangitis or cellulitis. Interdigital space hyperkeratotic tissue, particularly right foot, is also seen to the 4th interdigital space. ASSESSMENT 1. Tinea with hyperkeratotic tissue right foot. 2. Onychia right foot 5th digit. 3. Paronychia with concomitant pain left great toe. PLAN: Recommend lidocaine ointment with Bactroban to areas of tenderness bilateral feet, particularly 2nd digit ingrowns and also ketoconazole to be applied to the interdigital spaces that are involved. I would like to thank Dr. Washburn for the opportunity to treat this patient. I will be happy to follow and monitor closely. Job#: [id number] EV
[2017-06-24] MEDS: LISINOPRIL 2.5 MG TAB PO SCH (22:00)
[2017-06-24] MEDS: TEMAZEPAM 15 MG CAP PO SCH (22:00)
[2017-06-24] MEDS: AZITHROMYCIN 500MG/NS 250 ML 250 ML IV SCH (22:17)
[2017-06-24] MEDS: CEFTRIAXONE SOD 1 GM VIAL IV SCH (22:17)
[2017-06-24] MEDS: LORAZEPAM 0.5 MG TAB PO PRN (23:24)
[2017-06-25] VITALS: BP 104/57
[2017-06-25 04:00] VITALS: BP 134/68
[2017-06-25] MEDS: TIOTROPIUM 18 MCG INH POWDER INH SCH (06:00)
[2017-06-25] MEDS: OXYCODONE/ACETAMINOPHEN 5-325 1 EACH TABLET PO PRN ×2 (06:27→19:48)
[2017-06-25 06:59] LABS: BASOPHILS % 0.1 % (0.0-1.0); HEMATOCRIT 30.4 % (34.2-44.1); HEMOGLOBIN 9.7 g/dL (12.0-16.0); LYMPHOCYTES # (AUTO) 0.3 (1.0-3.2); LYMPHOCYTES % 2.4 % (18.0-39.1); MEAN CORPUSCULAR HEMOGLOBIN 26.8 pg (28-32); MEAN CORPUSCULAR HGB CONC 31.9 g/dL (31-35); MONOCYTES # (AUTO) 0.4 (0.2-0.8); MONOCYTES % 2.6 % (4.4-11.3); NEUTROPHILS # (AUTO) 12.5 (2.1-6.9); NEUTROPHILS % 93.5 % (38.7-80.0); PLATELET COUNT 355 x10e3/uL (140-360); RED BLOOD COUNT 3.62 x10e6/uL (3.6-5.1); RED CELL DISTRIBUTION WIDTH 18.4 % (11.7-14.4)
[2017-06-25] MEDS: ALBUTEROL SULF 0.083% NEB SOLN 3 ML NEB INH SCH ×4 (07:00→19:20)
[2017-06-25] MEDS: BUDESONIDE 0.5MG/2 ML NEB NEB SCH ×2 (07:00→19:20)
[2017-06-25 07:11] LABS: INR 2.33
[2017-06-25] MEDS: PANTOPRAZOLE SOD 40 MG TABEC PO SCH (07:30)
[2017-06-25 08:00] VITALS: BP 132/72
[2017-06-25] MEDS: KETOCONAZOLE 2% CREAM/15 GM TUBE TOP SCH (08:57)
[2017-06-25] MEDS: DILTIAZEM HCL 180 MG CAP CD PO SCH (08:57)
[2017-06-25 09:00] VITALS: BP 132/72
[2017-06-25] MEDS: METHYLPREDNISOLONE SOD SUCC 40 MG/ML VIAL IV SCH ×2 (09:00→21:09)
[2017-06-25 12:00] VITALS: BP 157/77
--- NOTE | 2017-06-25 12:59 | Diagnostic Imaging Report ---
PROCEDURE: Frontal and lateral views of the chest. COMPARISON: Patients [facility], CT, CT ANGIO CHEST W/ CONTRAST, 11/23/2010, 23:32. Patients [facility], DX, CHEST XRAY LINE PLACEMENT, 06/22/2017, 22:57. INDICATIONS: WHEEZING, CONGESTION FINDINGS: Lines/tubes: Right PICC terminates at the cavoatrial junction. Lungs: The lungs are well inflated and clear. There is no evidence of pneumonia or pulmonary edema. Stable right lower lobe pulmonary nodule. Linear opacities in the left lung field represent scarring vs subsegmental atelectasis. Pleura: There is no pleural effusion or pneumothorax. Heart and mediastinum: The heart and the mediastinum are normal. Aortic valve prosthesis. Bones: No acute bony abnormality. Compression abnormality of several vertebral bodies. IMPRESSION: No acute cardiopulmonary disease. Brayan Leonard D.O. Dictated by: Brayan Leonard D.O. on 06/25/2017 at 13:00 Electronically approved by: Brayan Leonard D.O. on 06/25/2017 at 13:00
[2017-06-25] MEDS: LORAZEPAM 0.5 MG TAB PO PRN (13:21)
[2017-06-25 16:50] VITALS: BP 120/60
[2017-06-25] MEDS: WARFARIN SOD 5 MG TAB PO SCH (16:55)
[2017-06-25] MEDS ORDERED: LISINOPRIL 10 MG TAB PO SCH (21:00)
[2017-06-25] MEDS: AZITHROMYCIN 500MG/NS 250 ML 250 ML IV SCH (23:00)
[2017-06-25] MEDS: TEMAZEPAM 15 MG CAP PO SCH (23:11)
[2017-06-25] MEDS: CEFTRIAXONE SOD 1 GM VIAL IV SCH (23:14)
[2017-06-26] MEDS: TIOTROPIUM 18 MCG INH POWDER INH SCH (06:00)
[2017-06-26] MEDS: ALBUTEROL SULF 0.083% NEB SOLN 3 ML NEB INH SCH ×4 (07:00→16:45)
[2017-06-26] MEDS: BUDESONIDE 0.5MG/2 ML NEB NEB SCH (07:00)
[2017-06-26] MEDS: OXYCODONE/ACETAMINOPHEN 5-325 1 EACH TABLET PO PRN (07:22)
[2017-06-26] MEDS: PANTOPRAZOLE SOD 40 MG TABEC PO SCH (07:30)
[2017-06-26 07:47] VITALS: BP 152/84
[2017-06-26 07:56] VITALS: BP 152/84
[2017-06-26] MEDS: METHYLPREDNISOLONE SOD SUCC 40 MG/ML VIAL IV SCH (08:56)
[2017-06-26] MEDS: DILTIAZEM HCL 180 MG CAP CD PO SCH (08:56)
[2017-06-26] MEDS: NITROFURANTOIN MACROCRYSTALS 100 MG CAP PO SCH ×2 (08:57→16:48)
[2017-06-26] MEDS: KETOCONAZOLE 2% CREAM/15 GM TUBE TOP SCH (09:00)
[2017-06-26 13:11] VITALS: BP 152/81
[2017-06-26] MEDS ORDERED: MICROBID PO (13:49)
[2017-06-26] MEDS ORDERED: PREDNISONE10 MG PO (13:50)
[2017-06-26] MEDS: WARFARIN SOD 5 MG TAB PO SCH (16:16)
[2017-06-26 17:34] VITALS: BP 142/70
--- NOTE | 2017-08-07 14:07 | Discharge Summary ---
DISCHARGE DIAGNOSES 1. Hamoo-yy-tebjlwy respiratory failure. 2. Community-acquired pneumonia with sepsis. 3. Chronic obstructive pulmonary disease. 4. Moderate protein calorie malnutrition. 5. Prosthetic aortic valve. CONSULTING PHYSICIANS: Dr. Tai of podiatry. HISTORY OF PRESENT ILLNESS: The patient is a 77-year-old woman. She has a history of a prosthetic heart valve and COPD. She has peripheral arterial disease. She required hospitalization at [facility] in March with COPD exacerbation. She now complains of worsening dyspnea and cough. She has phlegm production. The phlegm is yellow. HOSPITAL COURSE: The patient was admitted. She was started on IV Solu-Medrol and antibiotics. She had some improvement with this. She was also continued on Coumadin for her prosthetic heart valve. She was also seen by dietary and treated for protein calorie malnutrition. She made some improvement during the hospitalization, but her overall prognosis remained poor. She returned to the long-term facility. DISPOSITION: Patient returned to the long-term facility. She will follow up with Dr. Bansal. ABIMBOLA HUMPHREYS MD Job#: [id number] RI cc:BEATRICE BANSAL DO
== END 2017-06-26 18:08 | disposition home or self-care (01) | DRG 871 ==
LOC: ER 11:45 → ERHOLD 17:37 → MED/SURG2 17:39
PROVIDERS: ADMIT Internal Medicine Critical Care Medicine; ATTEND Internal Medicine Critical Care Medicine
PROC: 02HV33Z Insertion of Infusion Device into Superior Vena Cava, Percutaneous Approach (ICD-10-PCS; principal; 2017-06-22)
DX: A41.9 Sepsis, unspecified organism (principal); J96.20 Acute and chronic respiratory failure, unspecified whether with hypoxia or hypercapnia; J18.9 Pneumonia, unspecified organism; J44.0 Chronic obstructive pulmonary disease with (acute) lower respiratory infection; E44.0 Moderate protein-calorie malnutrition; N39.0 Urinary tract infection, site not specified; J44.1 Chronic obstructive pulmonary disease with (acute) exacerbation; D64.9 Anemia, unspecified; B35.3 Tinea pedis; I10 Essential (primary) hypertension; R73.9 Hyperglycemia, unspecified; D72.820 Lymphocytosis (symptomatic); Z95.2 Presence of prosthetic heart valve; R19.7 Diarrhea, unspecified; Z79.01 Long term (current) use of anticoagulants; L03.031 Cellulitis of right toe; L03.032 Cellulitis of left toe; Z88.0 Allergy status to penicillin; Z88.5 Allergy status to narcotic agent; Z88.8 Allergy status to other drugs, medicaments and biological substances; Z68.29 Body mass index [BMI] 29.0-29.9, adult; F17.210 Nicotine dependence, cigarettes, uncomplicated
CPT/HCPCS: 36415; 36569; 71045; 71046; 80048; 80053; 81001; 82550; 82553; 83605; 83880; 84134; 84484; 85025; 85610; 85730; 87040; 87070; 87086; 87186; 87205; 93005; 94640; 99285; J0456; J0696; J2001; J2920; J2930; J7050

== ENCOUNTER 2018-06-30 14:49 | Inpatient (IN) | payer MEDICARE, OTHER ==
[~2018-06-30] VITALS: Ht 152.4 cm; Wt 68.5 kg
[~2018-06-30 14:49] MED LIST changes: +COLACE100 MG PO; +LUBRICANT EYE1 EACH OP; +MICROBID PO; +PREDNISONE10 MG PO; +SENNA LAXATIVE1 EACH PO
--- OUTSIDE RECORDS SUMMARY | 2018-06-30 14:52 | XMS REPORT | Continuity of Care Document ---
Author Author [facility] Interface Address Unknown Phone Unavailable Problems Problem Status Onset Date Classification Date Reported Comments Source Anemia Active Problem 06/26/2017 [facility] COPD exacerbation Active Problem 06/26/2017 [facility] Leukocytosis Active Problem 06/26/2017 [facility] UTI Active Problem 06/26/2017 [facility] Medications Medication Details Route Status Patient Instructions Ordering Provider Order Date Source Oseltamivir Phosphate (Tamiflu) 75 Mg Cap, 75 Mg Oral Twice A Day Active 06/25/2017 [facility] Arformoterol Tartrate (Brovana) 15 Mcg/2 Ml Nebu, 15 Mcg Inhalation Twice A Day Active 06/22/2017 [facility] Aclidinium Stanton (Tudorza Pressair) 400 Mcg Aer.pow.ba, 400 Mcg Inhalation Daily Active 03/11/2017 [facility] Warfarin Sodium (Coumadin) 5 Mg Tablet, 7.5 Mg Oral M// Active 03/11/2017 [facility] Pantoprazole Sodium (Protonix) 40 Mg Tablet.dr Henson Active Chris 02/15/2017 [facility] Nitrofurantoin Macrocrystal (Nitrofurantoin) 100 Mg Capsule, 100 Mg Oral Twice A Day Active 02/15/2017 [facility] Budesonide/Formoterol Fumarate (Symbicort 160-4.5 Mcg Inhaler) 10.2 Gm Hfa.aer.ad, 10.2 GmInhalation Twice A Day Active 02/12/2017 [facility] Hydrocodone Bit/Acetaminophen ([place] 7.5-325 Tablet) 1 Each Tablet, 1 Each Oral As Needed Active 02/12/2017 [facility] Temazepam 30 Mg Capsule, 30 Mg Oral Bedtime Active 02/12/2017 [facility] Tiotropium (Spiriva Handihaler) 18 Mcg Inhpwd, 18 Mcg Inhalation Daily Active 02/12/2017 [facility] Warfarin Sodium (Coumadin) 3 Mg Tablet, 3 Mg Oral Daily Active 02/12/2017 [facility] Warfarin Sodium (Coumadin) 4 Mg Tablet, 4 Mg Oral Daily Active 02/12/2017 [facility] Albuterol Sulfate 0.63 Mg/3 Ml Vial.neb Four Times Daily Active [facility] Arformoterol Tartrate (Brovana) 15 Mcg/2 Ml Nebu Twice A Day Active [facility] Azithromycin (Z-Chente) 250 Mg Tablet Use As Directed Active Z- Pack [facility] Budesonide 0.5 Mg/2 Ml Ampul.neb Twice A Day Active [facility] Carboxymethylcellulose Sodium (Lubricant Eye Drops) 1 Each Droperette Daily Active [facility] Diltiazem Hcl (Cartia Xt) 180 Mg Cap.er.24h Daily Active [facility] Docusate Sodium (Colace) 100 Mg Cap Daily as needed for Constipation Active [facility] Lisinopril 10 Mg Tablet Twice A Day Active [facility] Microbid Twice A Day Active [facility] Oxycodone Hcl/Acetaminophen (Oxycodone-Acetaminophen 5-325) 1 Each Tablet Twice A Day Active [facility] Prednisone 10 Mg Tab Daily Active [facility] Sennosides/Docusate Sodium (Senna Laxative Tablet) 1 Each Tablet Daily as needed for Constipation Active [facility] Temazepam (Restoril) 15 Mg Capsule Bedtime Active [facility] Tiotropium Stanton (Spiriva) 18 Mcg Cap.w.dev Daily Active [facility] Warfarin Sodium (Coumadin) 5 Mg Tablet .tue/Brie/Sat/Sun Active [facility] Allergies, Adverse Reactions, Alerts Substance Category Reaction Severity Reaction type Status Date Reported Comments Source clopidogrel bisulfate Mild Allergy to Substance Active 03/08/2017 [facility] Penicillin Mild Allergy to Substance Active 03/08/2017 [facility] Codeine Mild Allergy to Substance Active 03/08/2017 [facility] Immunizations Immunization Date Given Site Status Last Updated Comments Source Results Order Name Results Value Reference Range Date Interpretation Comments Source Automated blood basophil count (count/volume) Automated blood basophil count (count/volume) 0.0 0.0 - 0.1 06/25/2017 [facility] Automated blood basophil count as percentage of total leukocytes Automated blood basophil count as percentage of total leukocytes 0.1 0.0 - 1.0 06/25/2017 [facility] Automated blood eosinophil count Automated blood eosinophil count 0.0 0.0 - 0.4 06/25/2017 [facility] Automated blood eosinophil count as percentage of total leukocytes Automated blood eosinophil count as percentage of total leukocytes 0.0 0.0 - 6.0 06/25/2017 [facility] Automated blood hematocrit (volume fraction) Automated blood hematocrit (volume fraction) 30.4 34.2 - 44.1 06/25/2017 [facility] Automated blood lymphocyte count as percentage ot total leukocytes Automated blood lymphocyte count as percentage ot total leukocytes 2.4 18.0 - 39.1 06/25/2017 [facility] Automated blood monocyte count as percentage of total leukocytes Automated blood monocyte count as percentage of total leukocytes 2.6 4.4 - 11.3 06/25/2017 [facility] Automated blood neutrophil count Automated blood neutrophil count 12.5 2.1 - 6.9 06/25/2017 [facility] Automated blood platelet count (count/volume) Automated blood platelet count (count/volume) 355 140 - 360 06/25/2017 [facility] Automated blood segmented neutrophil count as percentage of total leukocytes Automated blood segmented neutrophil count as percentage of total leukocytes 93.5 38.7 - 80.0 06/25/2017 [facility] Automated erythrocyte mean corpuscular hemoglobin (mass per erythrocyte) Automated erythrocyte mean corpuscular hemoglobin (mass per erythrocyte) 26.8 28 - 32 06/25/2017 [facility] Automated erythrocyte mean corpuscular hemoglobin concentration measurement (mass/volume) Automated erythrocyte mean corpuscular hemoglobin concentration measurement (mass/volume) 31.9 31 - 35 06/25/2017 [facility] Automated erythrocyte mean corpuscular volume Automated erythrocyte mean corpuscular volume 84.0 81 - 99 06/25/2017 [facility] Blood erythrocytes automated count (number/volume) Blood erythrocytes automated count (number/volume) 3.62 3.6 - 5.1 06/25/2017 [facility] Blood hemoglobin measurement (moles/volume) Blood hemoglobin measurement (moles/volume) 9.7 12.0 - 16.0 06/25/2017 [facility] Blood leukocytes automated count (number/volume) Blood leukocytes automated count (number/volume) 13.41 4.8 - 10.8 06/25/2017 [facility] Blood lymphocytes count (number/volume) Blood lymphocytes count (number/volume) 0.3 1.0 - 3.2 06/25/2017 [facility] Blood monocytes automated count (number/volume) Blood monocytes automated count (number/volume) 0.4 0.2 - 0.8 06/25/2017 [facility] INR in Platelet poor plasma by Coagulation assay INR in Platelet poor plasma by Coagulation assay 2.33 06/25/2017 [facility] Prothrombin time (PT) in platelet poor plasma by coagulation assay Prothrombin time (PT) in platelet poor plasma by coagulation assay 24.0 11.9 - 14.5 06/25/2017 [facility] Red Cell Distribution Width 18.4 11.7 - 14.4 06/25/2017 [facility] IM GRANULOCYTES % 1.4 0.0 - 1.0 06/25/2017 [facility] Absolute Immature Granulocyte (auto 0.19 0 - 0.1 06/25/2017 [facility] Serum or plasma creatine kinase MB measurement (mass/volume) Serum or plasma creatine kinase MB measurement (mass/volume) 2.50 0 - 5.0 06/23/2017 [facility] Serum or plasma creatine kinase measurement (enzymatic activity/volume) Serum or plasma creatine kinase measurement (enzymatic activity/volume) 38 29 - 168 06/23/2017 [facility] Troponin I measurement by highly sensitive enzyme immunoassay Troponin I measurement by highly sensitive enzyme immunoassay null 0 - 0.300 06/23/2017 [facility] Estimated glomerular filtration rate (GFR) determination Estimated glomerular filtration rate (GFR) determination null 60 06/23/2017 [facility] Glucose measurement Glucose measurement 254 74 - 118 06/23/2017 [facility] Serum or plasma anion gap Serum or plasma anion gap 13.8 8 - 16 06/23/2017 [facility] Serum or plasma calcium measurement (mass/volume) Serum or plasma calcium measurement (mass/volume) 9.2 8.4 - 10.2 06/23/2017 [facility] Serum or plasma carbon dioxide, total measurement (moles/volume) Serum or plasma carbon dioxide, total measurement (moles/volume) 27 22 - 29 06/23/2017 [facility] Serum or plasma chloride measurement (moles/volume) Serum or plasma chloride measurement (moles/volume) 98 98 - 107 06/23/2017 [facility] Serum or plasma creatinine measurement (mass/volume) Serum or plasma creatinine measurement (mass/volume) 0.78 0.57 - 1.11 06/23/2017 [facility] Serum or plasma potassium measurement (moles/volume) Serum or plasma potassium measurement (moles/volume) 3.8 3.5 - 5.1 06/23/2017 [facility] Serum or plasma prealbumin measurement (mass/volume) Serum or plasma prealbumin measurement (mass/volume) 7 9 - 32 06/23/2017 [facility] Serum or plasma sodium measurement (moles/volume) Serum or plasma sodium measurement (moles/volume) 135 136 - 145 06/23/2017 [facility] Serum or plasma urea nitrogen measurement (mass/volume) Serum or plasma urea nitrogen measurement (mass/volume) 13 7 - 26 06/23/2017 [facility] Serum or plasma urea nitrogen/creatinine mass ratio Serum or plasma urea nitrogen/creatinine mass ratio 17 6 - 25 06/23/2017 [facility] Blood culture Blood culture NO GROWTH AFTER 72 HOURS 06/22/2017 [facility] Lactic Acid Level 11.2 4.5 - 19.8 06/22/2017 [facility] Activated partial thromboplastin time (aPTT) in platelet poor plasma bycoagulation assay Activated partial thromboplastin time (aPTT) in platelet poor plasma bycoagulation assay 39.9 23.8 - 35.5 06/22/2017 [facility] Plasma globulin measurement (mass/volume) Plasma globulin measurement (mass/volume) 4.5 2.3 - 3.5 06/22/2017 [facility] Serum or plasma alanine aminotransferase measurement (enzymatic activity/volume) Serum or plasma alanine aminotransferase measurement (enzymatic activity/volume) null 0 - 55 06/22/2017 [facility] Serum or plasma albumin measurement (mass/volume) Serum or plasma albumin measurement (mass/volume) 2.9 3.5 - 5.0 06/22/2017 [facility] Serum or plasma albumin/globulin mass ratio Serum or plasma albumin/globulin mass ratio 0.6 0.8 - 2.0 06/22/2017 [facility] Serum or plasma alkaline phosphatase measurement (enzymatic activity/volume) Serum or plasma alkaline phosphatase measurement (enzymatic activity/volume) 122 40 - 150 06/22/2017 [facility] Serum or plasma protein measurement (mass/volume) Serum or plasma protein measurement (mass/volume) 7.4 6.5 - 8.1 06/22/2017 [facility] Serum or plasma total bilirubin measurement (mass/volume) Serum or plasma total bilirubin measurement (mass/volume) 0.6 0.2 - 1.2 06/22/2017 [facility] Aspartate Amino Transf (AST/SGOT) 9 5 - 34 06/22/2017 [facility] B-Type Natriuretic Peptide 82.9 0 - 100 06/22/2017 [facility] Automated urine sediment leukocyte count by microscopy (number/high power field) Automated urine sediment leukocyte count by microscopy (number/high power field) null 0 - 5 06/22/2017 [facility] Bacteria detection in urine sediment by light microscopy Bacteria detection in urine sediment by light microscopy MANY NONE 06/22/2017 [facility] Epithelial cells detection in urine sediment by light microscopy Epithelial cells detection in urine sediment by light microscopy FEW NONE 06/22/2017 [facility] Erythrocytes detection in urine sediment by light microscopy Erythrocytes detection in urine sediment by light microscopy null 0 - 5 06/22/2017 [facility] Specific gravity of Urine by Test strip Specific gravity of Urine by Test strip 1.025 1.010 - 1.025 06/22/2017 [facility] Urine clarity Urine clarity CLEAR CLEAR 06/22/2017 [facility] Urine color determination Urine color determination YELLOW YELLOW 06/22/2017 [facility] Urine erythrocytes detection Urine erythrocytes detection 2+ NEGATIVE 06/22/2017 [facility] Urine glucose detection Urine glucose detection NEGATIVE NEGATIVE 06/22/2017 [facility] Urine ketones detection by automated test strip Urine ketones detection by automated test strip TRACE NEGATIVE 06/22/2017 [facility] Urine leukocyte esterase detection by dipstick Urine leukocyte esterase detection by dipstick TRACE NEGATIVE 06/22/2017 [facility] Urine nitrite detection Urine nitrite detection POSITIVE NEGATIVE 06/22/2017 [facility] Urine pH measurement by automated test strip Urine pH measurement by automated test strip 6 5 - 7 06/22/2017 [facility] Urine protein measurement by test strip (mass/volume) Urine protein measurement by test strip (mass/volume) TRACE NEGATIVE 06/22/2017 [facility] Urine total bilirubin measurement (mass/volume) Urine total bilirubin measurement (mass/volume) NEGATIVE NEGATIVE 06/22/2017 [facility] Urine urobilinogen measurement by test strip (mass/volume) Urine urobilinogen measurement by test strip (mass/volume) 0.2 0.2 - 1 06/22/2017 [facility] Influenza virus A and B antigen identification by immunofluorescence Influenza virus A and B antigen identification by immunofluorescence POSITIVE FLU A NEGATIVE 03/08/2017 [facility] Stool gastrointestinal hemoglobin detection Stool gastrointestinal hemoglobin detection POSITIVE NEGATIVE 02/14/2017 [facility] Serum or plasma ferritin measurement (mass/volume) Serum or plasma ferritin measurement (mass/volume) 9.97 4.63 - 204.00 02/12/2017 [facility] Serum or plasma iron binding capacity measurement (mass/volume) Serum or plasma iron binding capacity measurement (mass/volume) 400 261 - 478 02/12/2017 [facility] Serum or plasma iron measurement (mass/volume) Serum or plasma iron measurement (mass/volume) 11 50 - 170 02/12/2017 [facility] Serum or plasma iron saturation measurement (mass fraction) Serum or plasma iron saturation measurement (mass fraction) 3 15 - 50 02/12/2017 [facility] Serum or plasma transferrin measurement (mass/volume) Serum or plasma transferrin measurement (mass/volume) 286 180 - 382 02/12/2017 [facility] Bacterial urine culture Bacterial urine culture Urine Culture [facility] Vital Signs Vital Sign Value Date Comments Source Encounters Location Location Details Encounter Type Encounter Number Reason For Visit Attending Provider ADM Date DC Date Status Source Discharged Inpatient [id number] AUBREY WARE MD 02/12/2017 02/15/2017 [facility] Discharged Inpatient [id number] ABIMBOLA HUMPHREYS MD 03/09/2017 03/11/2017 [facility] Discharged Inpatient [id number] ABIMBOLA HUMPHREYS MD 06/22/2017 06/26/2017 [facility] Procedures Procedure Code Date Perfomer Comments Source X-ray of chest, two views [id number] 06/25/2017 [facility] X-ray of chest, two views [id number] [facility] NONAUT FROZEN RED CELLS IN PERIPH VEIN, PERC [id number] 02/13/2017 [facility]
--- OUTSIDE RECORDS SUMMARY | 2018-06-30 14:52 | XMS REPORT | Summary of Care ---
Author Author LEVI Osborne, RICHA Organization Unknown Address Unknown Phone Unavailable Care Team Providers Care Petroleum Inspector Supervisor Name Role Phone DIMAS Meléndez.Willis, JASMINA Unavailable [...] AT BEDTIME * Quantity: 30 Refills: 1 VICKIE-COTTRELL D.O., RICHA * Start : 23-Jan-2017 Active [...] SATURDAY, SATURDAY, TAKE 1/2 TABLET SATURDAY, SATURDAY, , SATURDAY * Refills: 0 * Start : 23-Jan-2017 Active 90 Tablet Bottle Brovana 15 MCG/2ML Inhalation Nebulization Solution INHALE THE CONTENTS OF 1 VIAL TWO TIMES DAILY IN THE MORNING AND EVENING VIA STA [employer] NEBUL[employer]ER DIRECTED. * Refills: 0 * [...] 19-Nov-2016 Prevnar 13 Intramuscular Suspension Lot #: [id number] on: 23-Jan-2017 Family History Name Dates Details [...] smoker Vital Signs Date Test Result Details [id number] BP Systolic 124 mm[Hg] Status: Comments: Location: [...] Problem not documented On: 11-Feb-2017 14:00 Appointment; MELODY WU D.O. Encounter Diagnosis: Problem [...]
[2018-06-30] MEDS ORDERED: LEVALBUTEROL HCL SOLN NEBU 1.25 MG/3 ML NEB INH ONE (15:30)
[2018-06-30] MEDS ORDERED: METHYLPREDNISOLONE SOD SUCC 125 MG/2ML VIAL IV NR (15:30)
[2018-06-30] MEDS ORDERED: SODIUM CHLORIDE 0.9% 500ML 500 ML IV ONE (15:30)
[2018-06-30] MEDS ORDERED: IPRATROPIUM BROMIDE 0.02% 2.5 ML NEB NEB ONE (15:30)
[2018-06-30 15:43] LABS: BASOPHILS # (AUTO) 0.1 (0.0-0.1); BASOPHILS % 0.2 % (0.0-1.0); EOSINOPHILS # (AUTO) 0.1 (0.0-0.4); EOSINOPHILS % 0.2 % (0.0-6.0); HEMOGLOBIN 13.1 g/dL (12.0-16.0); LYMPHOCYTES # (AUTO) 0.9 (1.0-3.2); LYMPHOCYTES % 3.7 % (18.0-39.1); MEAN CORPUSCULAR HEMOGLOBIN 29.2 pg (28-32); MEAN CORPUSCULAR HGB CONC 32.8 g/dL (31-35); MEAN CORPUSCULAR VOLUME 89.1 fL (81-99); MONOCYTES # (AUTO) 1.4 (0.2-0.8); MONOCYTES % 5.8 % (4.4-11.3); NEUTROPHILS # (AUTO) 21.9 (2.1-6.9); NEUTROPHILS % 89.3 % (38.7-80.0); PLATELET COUNT 363 x10e3/uL (140-360); RED BLOOD COUNT 4.49 x10e6/uL (3.6-5.1); RED CELL DISTRIBUTION WIDTH 16.7 % (11.7-14.4)
[2018-06-30 15:53] LABS: INR 2.04; PROTHROMBIN TIME 23.7 seconds (11.9-14.5)
[2018-06-30 15:54] LABS: PARTIAL THROMBOPLASTIN TIME 52.7 seconds (23.8-35.5)
[2018-06-30] MEDS ORDERED: CEFTRIAXONE SOD 1 GM/NS 50 ML 50 ML IV SCH (16:00)
[2018-06-30 16:03] LABS: ALANINE AMINOTRANSFERASE 14 IU/L (0-55); ALBUMIN/GLOBULIN RATIO 0.7 (0.8-2.0); ALKALINE PHOSPHATASE 205 IU/L (40-150); ANION GAP 14.1 mmol/L (8-16); BLOOD UREA NITROGEN 10 mg/dL (7-26); BUN/CREATININE RATIO 13 (6-25); CALCIUM 9.5 mg/dL (8.4-10.2); CARBON DIOXIDE 29 mmol/L (22-29); CHLORIDE 98 mmol/L (98-107); CREATINE KINASE 27 IU/L (29-168); CREATININE, SERUM 0.75 mg/dL (0.57-1.11); EST GLOMERULAR FILTRATION RATE > 60 ML/MIN (60-); GLUCOSE 148 mg/dL (74-118); POTASSIUM 4.1 mmol/L (3.5-5.1); SODIUM 137 mmol/L (136-145)
[2018-06-30 16:11] LABS: B-TYPE NATRIURETIC PEPTIDE2 82.1 pg/mL (0-100)
[2018-06-30] MEDS ORDERED: ALBUTEROL SULF 0.083% NEB SOLN 3 ML NEB INH PRN (17:00)
[2018-06-30] MEDS ORDERED: SENNOSIDES 8.6 MG TAB PO PRN (17:00)
[2018-06-30] MEDS ORDERED: DOCUSATE SODIUM 100 MG CAP PO PRN (17:00)
[2018-06-30] MEDS ORDERED: SODIUM CHLORIDE 0.9% 1000ML 1,000 ML IV ONE (17:00)
[2018-06-30 17:01] LABS: ABG HCO3 28 mmol/L (23-28); ABG PCO2 47 mmHg (41-51); ABG PH 7.39 (7.31-7.41); ABG PO2 82 mmHg (80-105)
--- NOTE | 2018-06-30 17:06 | Diagnostic Imaging Report ---
EXAM: CHEST SINGLE (PORTABLE), AP Portable DATE: 06/30/2018 Time stamp on exam: 3:41 PM INDICATION: Cough with shortness of breath COMPARISON: 06/22/2017 FINDINGS: LINES/TUBES: Sternotomy wire sutures. LUNGS: Mild pulmonary vascular congestion. Prominence of the right hilum likely is vascular. Unchanged right lower lung pulmonary nodule. PLEURA: No effusions or pneumothorax. HEART AND MEDIASTINUM: Normal size and contour. BONES AND SOFT TISSUES: No acute findings. IMPRESSION: Mild pulmonary vascular congestion. Signed by: Dr. Brayan Leonard DO on 06/30/2018 5:02 PM
[2018-06-30] MEDS: AZITHROMYCIN 500MG/NS 250 ML 250 ML IV SCH ×2 (17:15→18:25)
[2018-06-30] MEDS: LISINOPRIL 10 MG TAB PO SCH (17:23)
[2018-06-30] MEDS: CEFEPIME 2 GM/NS 0.9% 100 ML 100 ML IV SCH (17:25)
--- NOTE | 2018-06-30 17:29 | History and Physical ---
CHIEF COMPLAINT: Difficulty breathing and chronic back pain. HISTORY OF PRESENT ILLNESS: The patient is a 78-year-old woman. She has a history of severe COPD. She also has atrial fibrillation. She was recently hospitalized at [facility] with a compression fracture that required kypho-vertebroplasty. She subsequently went to inpatient rehab. She has been at home with home health. The patient now complains of worsening dyspnea and congestion. She has a cough productive of phlegm. She has no fever. She still complains of chronic back pain. She has been taking Percocet and baclofen for this. PAST SURGICAL HISTORY: 1. Status post kypho-vertebroplasty as noted above. 2. Status post aortic valve replacement with a prosthetic valve. PAST MEDICAL HISTORY: 1. Severe COPD. 2. Peripheral vascular disease. 3. Atrial fibrillation. 4. Anemia. 5. Hypertension. SOCIAL HISTORY: The patient is not an active smoker or drinker. She lives with her daughter. She also has a son, who lives in [place]. FAMILY HISTORY: Family history is noncontributory. ALLERGIES: SHE IS ALLERGIC TO PENICILLINS WELL PLAVIX. REVIEW OF SYSTEMS: The patient is afebrile. She does not complain of any headache. She has no neck pain. She is not having any chest pain. She does have worsening dyspnea and wheezing. She also has some abdominal pain. She has some lower back pain in the lower thoracic lumbar area. She has no leg edema or no leg pain. PHYSICAL EXAMINATION: VITAL SIGNS: Blood pressure 141/74 and the pulse is 99. The respiratory rate is 18. HEENT: Shows no facial swelling or erythema. The nasal mucosa is normal. The oropharynx is normal. LYMPHATIC: Shows no submandibular, cervical, or supraclavicular adenopathy. CARDIAC: Reveals a regular rate and rhythm with normal S1, S2. LUNGS: Auscultation of lungs reveals rhonchorous breath sounds bilaterally. There is no wheezing. ABDOMEN: Soft, nontender. There is no rebound or guarding. EXTREMITIES: Show no leg edema or calf tenderness. There is no cyanosis or clubbing. SKIN: Shows no rashes. NEUROLOGICAL: Shows no focal abnormalities. LABORATORY DATA: White blood cell count is 24.6 and the platelet count is 363. The hemoglobin is 13.1. The BUN to creatinine ratio is normal. The other electrolytes are within normal limits. Blood gas is 7.4 with a CO2 of 47 and an O2 of 82. IMPRESSION: 1. Rmukx-ya-ohmhefn respiratory failure. 2. Chronic obstructive pulmonary disease. 3. Leukocytosis of unclear etiology. 4. Moderate protein-calorie malnutrition. 5. Chronic back pain with a recent compression fracture and kypho-vertebroplasty. PLAN: 1. The patient will be started on Solu-Medrol. 2. She will have a chest x-ray and will be pancultured. 3. She will start on antibiotics to cover for hospital-acquired organisms. 4. She will have a CT scan of the thoracic and lumbar spines to rule out any epidural abscess or packed infection. 5. The patient will be using BiPAP as needed. 6. The patient has a living will and does not want heroic measures. She is DNR. Cesar Washburn MD LM/MICHAELL /[id number]
[2018-06-30] MEDS ORDERED: VANCOMYCIN 750MG/NS 150ML IVPB 150 ML IV SCH (18:00)
[2018-06-30 18:50] LABS: BILIRUBIN,URINE NEGATIVE (NEGATIVE); CLARITY,URINE SL CLOUDY (CLEAR); COLOR,URINE YELLOW (YELLOW); KETONES,URINE TRACE (NEGATIVE); LEUKOCYTE ESTERASE ,URINE NEGATIVE (NEGATIVE); NITRITE,URINE NEGATIVE (NEGATIVE); PROTEIN,URINE DIPSTICK NEGATIVE (NEGATIVE); URINE UROBILINOGEN 0.2 mg/dL (0.2 - 1)
[2018-06-30 18:59] LABS: BACTERIA,URINE FEW /HPF; EPITHELIAL CELLS,URINE MANY /LPF; TRANSITIONAL EPI CELLS,URINE MODERATE
[2018-06-30] MEDS ORDERED: IOPAMIDOL 370 MG/ML 200 ML INFUS..BTL INJ ONE (19:21)
[2018-06-30] MEDS ORDERED: SODIUM CHLORIDE 0.9% 50ML 50 ML ONE (19:21)
--- NOTE | 2018-06-30 19:48 | Diagnostic Imaging Report ---
ADDENDUM #1 I agree with the preliminary impression of this report. There are compression fracture/compression deformities from T2 through L3. Several thoracic compression fractures are age-indeterminate. Lumbar compression fractures appear chronic. Spine MRI could further evaluate as warranted. Please disregard the following dictation errors. Under the heading of alignment the following should read: There is approximately 1.2 cm isthmic spondylolisthesis of L5 on S1. This results in severe bilateral foraminal stenosis at L5-S1. Under degenerative changes, under the heading of thoracic spine, the following should read: There is multilevel thoracic disc degeneration and moderate foraminal stenosis bilaterally at T5-T6 and on the left at T10-T11 due to a disc osteophyte complex. Signed by: Dr. Surinder Fair M.D. on 06/30/2018 10:32 PM ORIGINAL REPORT Exam: Thoracolumbar spine CT without contrast Indication: Low back pain Comparisons: None Technique: Axial images were obtained from C6 to the sacrum. Coronal and sagittal images reconstructed from the axial data. Dose modulation, iterative reconstruction, and/or weight based adjustment of the mA/kV was utilized to reduce the radiation dose to as low as reasonably achievable. Intravenous contrast: None Findings: Number of non-rib bearing vertebral bodies: 5. Alignment: A 1.2 cm cystic spondylolisthesis of L5 on S1 is chronic and degenerative. Exaggerated thoracic kyphosis and lumbar lordosis. No scoliosis. Soft tissues: Prominent and rounded mediastinal nodes measuring up to 1.2 cm in diameter. For example a 1 cm precarinal node (series 3, image 40) and a 1.2 cm tracheal esophageal groove node (series 3, image 41). Biapical pulmonary parenchymal scarring. Scattered coronary calcifications. Right atrium is enlarged, 4.7 cm in AP dimension. The right and left pulmonary arteries are enlarged which can be seen in the setting of pulmonary vascular hypertension. Calcific atherosclerosis of the abdominal aorta and major branching vessels. Circumferential thickening of the esophagus may be related to underdistention. Small sliding-type gastroesophageal hernia. Bilateral perinephric stranding may be related to senescence. Paraspinal muscles: Moderate fatty infiltration particularly about the lower lumbar spine. Vertebrae: Diffuse bony demineralization. Multiple compression deformities throughout the thoracic and lumbar spine including T5-T7, T12, and L3 with mild height loss and no significant retropulsion. Sequela of prior vertebroplasty at T8 and T10. Subacute or chronic right posterior eighth rib fracture (series 4, image 59). Degenerative changes: Thoracic spine: L1-L2: No abnormalities. L2-L3: Mildly degenerated disc. Symmetric disc bulge, thickening of ligamentum flavum, and mild bilateral facet arthroses. Patent spinal canal and mild bilateral foraminal stenoses. L3-L4: Mildly degenerated disc. Symmetric disc bulge, thickening of ligamentum flavum, and mild bilateral facet arthroses. Patent spinal canal and mild bilateral foraminal stenoses. L4-L5: Moderately degenerated disc. Symmetric disc bulge, thickening of the ligamentum flavum, and mild bilateral facet arthroses. Patent canal and mild bilateral foraminal stenoses. L5-S1: Advanced disc degeneration related to isthmic spondylolisthesis. Symmetric disc bulge and uncovering, facet arthroses and epidural lipomatosis. Patent canal and severe bilateral foraminal stenoses. Sacroiliac joints: No degenerative changes. IMPRESSION: 1. Diffuse bony demineralization with multiple age-indeterminate compression fractures. Associated mild height loss but no significant retropulsion into the spinal canal. Sequela of prior vertebroplasty at T8 and T10. 2. Grade 1-2 isthmic spondylolisthesis at L5-S1, likely chronic and degenerative, results in severe bilateral foraminal stenoses. 3. Additional findings: Prominent mediastinal nodes can be further characterized with dedicated chest CT. Enlarged right atrium with scattered coronary calcifications. Enlarged pulmonary arteries to be seen in the setting of pulmonary vascular hypertension. A preliminary report was provided by Dr. Adams on 06/30/2018 7:44 PM. Signed by: Tigre Adams MD on 06/30/2018 7:44 PM
[2018-06-30] MEDS: LEVALBUTEROL HCL SOLN NEBU 0.63 MG/3 ML NEB INH SCH ×2 (20:00→23:00)
[2018-06-30] MEDS: BUDESONIDE 0.5MG/2 ML NEB NEB SCH (20:00)
[2018-06-30] MEDS: IPRATROPIUM BROMIDE 0.02% 2.5 ML NEB NEB SCH (20:00)
[2018-06-30] MEDS ORDERED: LORAZEPAM0.5 MG PO (20:37)
[2018-06-30] MEDS ORDERED: VOLTAREN100 GM TOP (20:37)
[2018-06-30] MEDS ORDERED: WARFARIN SODIU2.5 MG PO (20:37)
[2018-06-30] MEDS ORDERED: ATORVASTATIN CA20 MG PO (20:37)
[2018-06-30] MEDS ORDERED: BACLOFEN10 MG PO (20:37)
[2018-06-30] MEDS ORDERED: TUDORZA PRESS400 MCG INH (20:37)
[2018-06-30] MEDS ORDERED: TEMAZEPAM 15 MG CAP PO SCH (21:00)
[2018-06-30 21:11] LABS: LYMPHOCYTES % (MANUAL) 2 % (19-48); MONOCYTES % (MANUAL) 6 % (3.4-9.0); NEUTROPHILS % (MANUAL) 90 % (40-74); PLATELET ESTIMATE ADEQUATE; PLATELET MORPHOLOGY COMMENT NORMAL; RBC MORPHOLOGY COMMENT NORMAL
--- NOTE | 2018-06-30 21:42 | NUR ---
PT PLACED ON HOSPITAL BED FOR COMFORT. RESTING IN POC, NAD NOTED. STATES SHE FEELS MUCH BETTER
--- NOTE | 2018-06-30 22:22 | NUR ---
PRESSED CALL [facility] REQUETING TEMAZEPAM TO HELP HER SLEEP, AWAKE ALERT SKIN W/D RESP NONLAB. NAD NOTED. MEDICATED PER ORDERS
[2018-06-30] MEDS: METHYLPREDNISOLONE SOD SUCC 125 MG/2ML VIAL IV SCH (22:35)
--- NOTE | 2018-06-30 22:37 | Diagnostic Imaging Report ---
There are compression fracture/compression deformities from T2 through L3. Several thoracic compression fractures are age-indeterminate. Lumbar compression fractures appear chronic. Spine MRI could further evaluate as warranted. Please disregard the following dictation errors. Under the heading of alignment the following should read: There is approximately 1.2 cm chronic isthmic spondylolisthesis of L5 on S1. This results in severe bilateral foraminal stenosis at L5-S1. Under degenerative changes, under the heading of thoracic spine, the following should read: There is multilevel thoracic disc degeneration and moderate foraminal stenosis bilaterally at T5-T6 and on the left at T10-T11 due to a disc osteophyte complex. Signed by: Dr. Surinder Fair M.D. on 06/30/2018 10:32 PM Addended on 06/30/2018 10:32:[address] Surinder Fair M.D.. Exam: Thoracolumbar spine CT without contrast Indication: Low back pain Comparisons: None Technique: Axial images were obtained from C6 to the sacrum. Coronal and sagittal images reconstructed from the axial data. Dose modulation, iterative reconstruction, and/or weight based adjustment of the mA/kV was utilized to reduce the radiation dose to as low as reasonably achievable. Intravenous contrast: None Findings: Number of non-rib bearing vertebral bodies: 5. Alignment: A 1.2 cm cystic spondylolisthesis of L5 on S1 is chronic and degenerative. Exaggerated thoracic kyphosis and lumbar lordosis. No scoliosis. Soft tissues: Prominent and rounded mediastinal nodes measuring up to 1.2 cm in diameter. For example a 1 cm precarinal node (series 3, image 40) and a 1.2 cm tracheal esophageal groove node (series 3, image 41). Biapical pulmonary parenchymal scarring. Scattered coronary calcifications. Right atrium is enlarged, 4.7 cm in AP dimension. The right and left pulmonary arteries are enlarged which can be seen in the setting of pulmonary vascular hypertension. Calcific atherosclerosis of the abdominal aorta and major branching vessels. Circumferential thickening of the esophagus may be related to underdistention. Small sliding-type gastroesophageal hernia. Bilateral perinephric stranding may be related to senescence. Paraspinal muscles: Moderate fatty infiltration particularly about the lower lumbar spine. Vertebrae: Diffuse bony demineralization. Multiple compression deformities throughout the thoracic and lumbar spine including T5-T7, T12, and L3 with mild height loss and no significant retropulsion. Sequela of prior vertebroplasty at T8 and T10. Subacute or chronic right posterior eighth rib fracture (series 4, image 59). Degenerative changes: Thoracic spine: L1-L2: No abnormalities. L2-L3: Mildly degenerated disc. Symmetric disc bulge, thickening of ligamentum flavum, and mild bilateral facet arthroses. Patent spinal canal and mild bilateral foraminal stenoses. L3-L4: Mildly degenerated disc. Symmetric disc bulge, thickening of ligamentum flavum, and mild bilateral facet arthroses. Patent spinal canal and mild bilateral foraminal stenoses. L4-L5: Moderately degenerated disc. Symmetric disc bulge, thickening of the ligamentum flavum, and mild bilateral facet arthroses. Patent canal and mild bilateral foraminal stenoses. L5-S1: Advanced disc degeneration related to isthmic spondylolisthesis. Symmetric disc bulge and uncovering, facet arthroses and epidural lipomatosis. Patent canal and severe bilateral foraminal stenoses. Sacroiliac joints: No degenerative changes. IMPRESSION: 1. Diffuse bony demineralization with multiple age-indeterminate compression fractures. Associated mild height loss but no significant retropulsion into the spinal canal. Sequela of prior vertebroplasty at T8 and T10. 2. Grade 1-2 isthmic spondylolisthesis at L5-S1, likely chronic and degenerative, results in severe bilateral foraminal stenoses. 3. Additional findings: Prominent mediastinal nodes can be further characterized with dedicated chest CT. Enlarged right atrium with scattered coronary calcifications. Enlarged pulmonary arteries to be seen in the setting of pulmonary vascular hypertension. A preliminary report was provided by Dr. Adams on 06/30/2018 7:44 PM. Signed by: Dr. Surinder Fair M.D. on 06/30/2018 10:34 PM
[2018-06-30 23:04] LABS: CREATINE KINASE 21 IU/L (29-168)
[2018-07-01] MEDS: IPRATROPIUM BROMIDE 0.02% 2.5 ML NEB NEB SCH ×4 (00:31→19:55)
[2018-07-01] MEDS: LEVALBUTEROL HCL SOLN NEBU 0.63 MG/3 ML NEB INH SCH ×6 (03:00→22:50)
[2018-07-01 06:19] LABS: BASOPHILS % 0.1 % (0.0-1.0); HEMATOCRIT 36.1 % (34.2-44.1); HEMOGLOBIN 11.7 g/dL (12.0-16.0); LYMPHOCYTES # (AUTO) 0.5 (1.0-3.2); LYMPHOCYTES % 3.5 % (18.0-39.1); MEAN CORPUSCULAR HEMOGLOBIN 29.3 pg (28-32); MEAN CORPUSCULAR HGB CONC 32.4 g/dL (31-35); MEAN CORPUSCULAR VOLUME 90.5 fL (81-99); MONOCYTES # (AUTO) 0.1 (0.2-0.8); MONOCYTES % 0.5 % (4.4-11.3); NEUTROPHILS # (AUTO) 14.5 (2.1-6.9); NEUTROPHILS % 95.4 % (38.7-80.0); PLATELET COUNT 285 x10e3/uL (140-360); RED BLOOD COUNT 3.99 x10e6/uL (3.6-5.1); RED CELL DISTRIBUTION WIDTH 16.8 % (11.7-14.4)
[2018-07-01 06:53] LABS: INR 1.79; PROTHROMBIN TIME 21.4 seconds (11.9-14.5)
[2018-07-01 07:00] LABS: ALANINE AMINOTRANSFERASE 8 IU/L (0-55); ALBUMIN 2.4 g/dL (3.5-5.0); ALBUMIN/GLOBULIN RATIO 0.6 (0.8-2.0); ALKALINE PHOSPHATASE 170 IU/L (40-150); ANION GAP 10.9 mmol/L (8-16); BLOOD UREA NITROGEN 10 mg/dL (7-26); BUN/CREATININE RATIO 15 (6-25); CARBON DIOXIDE 28 mmol/L (22-29); CHLORIDE 99 mmol/L (98-107); CREATININE, SERUM 0.68 mg/dL (0.57-1.11); EST GLOMERULAR FILTRATION RATE > 60 ML/MIN (60-); GLUCOSE 193 mg/dL (74-118); POTASSIUM 3.9 mmol/L (3.5-5.1); SODIUM 134 mmol/L (136-145)
[2018-07-01] MEDS: TIOTROPIUM 18 MCG INH POWDER INH SCH (07:00)
[2018-07-01] MEDS: BUDESONIDE 0.5MG/2 ML NEB NEB SCH ×2 (07:00→20:11)
[2018-07-01 07:21] LABS: CREATINE KINASE 17 IU/L (29-168)
[2018-07-01] MEDS: CEFEPIME 2 GM/NS 0.9% 100 ML 100 ML IV SCH ×2 (07:30→21:45)
[2018-07-01] MEDS: PANTOPRAZOLE SOD 40 MG TABEC PO SCH (08:20)
[2018-07-01] MEDS: AZITHROMYCIN 500MG/NS 250 ML 250 ML IV SCH (08:20)
[2018-07-01] MEDS: METHYLPREDNISOLONE SOD SUCC 125 MG/2ML VIAL IV SCH ×2 (08:20→21:23)
[2018-07-01] MEDS: DILTIAZEM HCL 180 MG CAP ER PO SCH (08:21)
[2018-07-01] MEDS: LISINOPRIL 10 MG TAB PO SCH ×2 (08:21→17:46)
--- NOTE | 2018-07-01 08:32 | NUR ---
Patient repositioned to avoid sking breakdown. No distress noted at this time.
[2018-07-01] MEDS: VANCOMYCIN 750MG/NS 150ML IVPB 150 ML IV SCH ×2 (09:17→22:17)
[2018-07-01 11:14] VITALS: BP 133/75
[2018-07-01 11:19] VITALS: BP 133/75
[2018-07-01] MEDS ORDERED: BACLOFEN 10 MG TAB PO PRN (14:30)
[2018-07-01] MEDS ORDERED: LORAZEPAM 0.5 MG TAB PO PRN (14:30)
--- NOTE | 2018-07-01 15:40 | Consultation ---
DATE OF CONSULTATION: CARDIOLOGY CONSULTATION CHIEF COMPLAINT: The patient is a 78-year-old with shortness of breath. HISTORY OF PRESENT ILLNESS: The patient is a 78-year-old with a history of atrial fibrillation, she is currently in normal sinus rhythm. The patient was at home, recovering from compression fracture, and she developed worsening dyspnea and congestion and cough with phlegm. The patient had no chest pain. The patient came to the emergency room. PAST MEDICAL HISTORY: Significant for: 1. Severe COPD. 2. Peripheral vascular disease. 3. Paroxysmal atrial fibrillation. 4. Previous aortic valve replacement. 5. Hypertension. 6. Anemia. SOCIAL HISTORY: The patient does not drink or does not smoke. The patient lives at home. FAMILY HISTORY: There is no known family history of coronary artery disease. PHYSICAL EXAMINATION: GENERAL: The patient is a well-developed, well-nourished female, in no obvious distress. VITAL SIGNS: Blood pressure 130/70, pulse 96, temperature 98.8. HEAD, EARS, EYES, NOSE, AND THROAT: The patient's cranium is normocephalic and atraumatic. Extraocular muscles were intact. Sclerae are anicteric. Pupils are equal, round, and reactive to light. CARDIAC: Normal S1 with an abnormal S2 and a short 2/6 systolic murmur. LUNGS: The patient had bilateral rhonchi. ABDOMEN: The patient had good bowel sounds. No masses. No tenderness. EXTREMITIES: There is no clubbing, no cyanosis, and no edema. NEUROLOGIC: The patient is alert and oriented x3. Cranial nerves II through XII are intact. Motor strength is +5/+5 in all limbs. IMAGING DATA: The patient's EKG demonstrated sinus tachycardia. IMPRESSION: The patient is a 78-year-old with acute respiratory infection superimposed on chronic obstructive pulmonary disease. The patient has also intermittent atrial fibrillation and previous aortic valve replacement. I suspect most of the patient's symptoms at this time are pulmonary in origin. RECOMMENDATIONS: 1. The patient will need to be continued on Coumadin. 2. The patient will require repeat echocardiogram. 3. The patient will require monitoring on telemetry. MD ALEKSANDR Ruiz/DIPIKA /[id number]
[2018-07-01 16:53] VITALS: BP 124/77
--- NOTE | 2018-07-01 17:43 | NUR ---
report called to trans pt, vs stable.
[2018-07-01] MEDS: WARFARIN SOD 5 MG TAB PO SCH (17:46)
--- NOTE | 2018-07-01 18:00 | NUR ---
PATIENT RECEIVED FROM [facility] BY STRETCHER. ALERT AND VERBALLY RESPONSIVE. DENIED PAIN. REQUESTED AND RECEIVED A CUP OF ICE WATER. SHOE REPAIRMAN BOX [address] WITH CONTINUOUS PULSE OX; O2 IN PLACE VIA N/C, NO SOB NOTED. ALL PERSONAL ITEMS CLOSE TO PATIENT. BED IN LOWER POSITION, CALL LIGHT AT REACH.
--- NOTE | 2018-07-01 19:31 | Progress Note ---
DATE: 07/01/2018 Pulmonary Critical Care Progress Note SUBJECTIVE: The patient feels better this afternoon. She has less dyspnea. She still has some pain in her back. She is not having any fevers. PHYSICAL EXAMINATION: VITAL SIGNS: The patient is afebrile. The blood pressure is 133/75 and pulse is 105. Saturation is 96% on 3 L. HEENT: Shows no facial swelling or erythema. CARDIAC: Reveals a regular rate and rhythm with normal S1, S2. There are no murmurs or rubs heard. LUNGS: Auscultation of lungs shows decreased breath sounds at the bases. There is a prolonged expiratory phase. ABDOMEN: Soft, nontender. There is no rebound or guarding. EXTREMITIES: Show no leg edema or calf tenderness. There is no cyanosis or clubbing. SKIN: Shows no rashes. LABORATORY DATA: Albumin is 2.4 and the electrolytes are within normal limits. The BUN to creatinine ratio is normal. The white blood cell count is decreased to 15, and hemoglobin is 11.7. The platelet count is 285. Echocardiogram shows a decreased ejection fraction of 40% to 45%. There is some aortic valve stenosis with some trace AI as well as mild mitral regurgitation. The pulmonary artery pressure is elevated at 46. IMPRESSION: 1. Acute on chronic respiratory failure. 2. Chronic systolic congestive heart failure. 3. Prior aortic valve replacement. 4. Atrial fibrillation. 5. Moderate protein-calorie malnutrition. 6. Leukocytosis with sepsis of unknown source, present on admission. PLAN: 1. Continue current antibiotics and await culture results. 2. Continue current cardiac regimen along with anticoagulation. 3. Dietary evaluation and pre-albumin level. 4. Nutritional supplementations with meals. 5. Physical therapy. 6. Continue Solu-Medrol along with antibiotics and bronchodilators. 7. The patient is DNR and does not want heroic measures. Cesar Washburn MD [facility]/MODL /[id number]
[2018-07-01 19:38] VITALS: BP 123/68
--- NOTE | 2018-07-01 19:38 | NUR ---
PT IS RESTING IN THE BED WITH DAUGHTER AT BEDSIDE. NO RESPIRATORY DISTRESS NOTED. BED IN THE LOWEST POSITION, LOCKED, AND CALL LIGHT WITHIN REACH. WILL CONTINUE TO MONITOR.
[2018-07-01 20:00] VITALS: BP 134/71
[2018-07-01] MEDS ORDERED: SODIUM CHLORIDE 0.9% 250ML 250 ML ONE (21:06)
[2018-07-01] MEDS: TEMAZEPAM 15 MG CAP PO SCH (21:23)
[2018-07-02] VITALS (7 sets, daily range): BP systolic 123–148; BP diastolic 60–68
[2018-07-02] MEDS: LEVALBUTEROL HCL SOLN NEBU 0.63 MG/3 ML NEB INH SCH ×6 (03:30→23:55)
[2018-07-02] MEDS: IPRATROPIUM BROMIDE 0.02% 2.5 ML NEB NEB SCH ×4 (03:30→20:25)
[2018-07-02] MEDS: OXYCODONE/ACETAMINOPHEN 5-325 1 EACH TABLET PO PRN (03:46)
[2018-07-02] MEDS: TIOTROPIUM 18 MCG INH POWDER INH SCH (06:00)
--- NOTE | 2018-07-02 06:42 | NUR ---
PT IS RESTING IN BED. NO RESPIRATORY DISTRESS NOTED. NO ACUTE EVENT OCCURRED THROUGHOUT THE NIGHT. BED IN THE LOWEST POSITION, LOCKED, AND CALL LIGHT WITHIN REACH. REPORT GIVEN TO ONCOMING NURSE.
[2018-07-02 06:49] LABS: BASOPHILS % 0.2 % (0.0-1.0); LYMPHOCYTES # (AUTO) 0.3 (1.0-3.2); LYMPHOCYTES % 1.8 % (18.0-39.1); MEAN CORPUSCULAR HEMOGLOBIN 28.6 pg (28-32); MEAN CORPUSCULAR HGB CONC 30.6 g/dL (31-35); MEAN CORPUSCULAR VOLUME 93.8 fL (81-99); MONOCYTES # (AUTO) 0.4 (0.2-0.8); MONOCYTES % 2.3 % (4.4-11.3); NEUTROPHILS % 94.6 % (38.7-80.0); PLATELET COUNT 293 x10e3/uL (140-360); RED BLOOD COUNT 3.84 x10e6/uL (3.6-5.1); RED CELL DISTRIBUTION WIDTH 16.7 % (11.7-14.4)
[2018-07-02 06:53] LABS: INR 1.56; PROTHROMBIN TIME 19.3 seconds (11.9-14.5)
[2018-07-02 07:06] LABS: ALANINE AMINOTRANSFERASE 9 IU/L (0-55); ALBUMIN 2.5 g/dL (3.5-5.0); ALBUMIN/GLOBULIN RATIO 0.7 (0.8-2.0); ALKALINE PHOSPHATASE 165 IU/L (40-150); ANION GAP 13.2 mmol/L (8-16); BLOOD UREA NITROGEN 14 mg/dL (7-26); BUN/CREATININE RATIO 18 (6-25); CALCIUM 9.1 mg/dL (8.4-10.2); CARBON DIOXIDE 29 mmol/L (22-29); CHLORIDE 99 mmol/L (98-107); CREATININE, SERUM 0.77 mg/dL (0.57-1.11); EST GLOMERULAR FILTRATION RATE > 60 ML/MIN (60-); GLUCOSE 216 mg/dL (74-118); POTASSIUM 4.2 mmol/L (3.5-5.1); SODIUM 137 mmol/L (136-145)
[2018-07-02] MEDS: BUDESONIDE 0.5MG/2 ML NEB NEB SCH ×2 (07:15→20:46)
[2018-07-02] MEDS: PANTOPRAZOLE SOD 40 MG TABEC PO SCH (07:58)
[2018-07-02] MEDS: CEFEPIME 2 GM/NS 0.9% 100 ML 100 ML IV SCH ×2 (08:00→19:30)
[2018-07-02] MEDS: METHYLPREDNISOLONE SOD SUCC 125 MG/2ML VIAL IV SCH (08:00)
[2018-07-02] MEDS: DILTIAZEM HCL 180 MG CAP ER PO SCH (08:01)
[2018-07-02] MEDS: LISINOPRIL 10 MG TAB PO SCH ×2 (08:02→17:52)
[2018-07-02] MEDS: VANCOMYCIN 750MG/NS 150ML IVPB 150 ML IV SCH ×2 (09:48→21:00)
[2018-07-02] MEDS ORDERED: WARFARIN SOD 5 MG TAB PO NR (10:00)
[2018-07-02 12:28] LABS: LYMPHOCYTES % (MANUAL) 8 % (19-48); MONOCYTES % (MANUAL) 12 % (3.4-9.0); NEUTROPHILS % (MANUAL) 80 % (40-74)
[2018-07-02 12:29] LABS: ANISOCYTOSIS SLIGHT; HYPOCHROMASIA MODERATE; NUCLEATED RED BLOOD CELLS 0; PLATELET ESTIMATE ADEQUATE; PLATELET MORPHOLOGY COMMENT NORMAL; RBC MORPHOLOGY COMMENT NORMAL
--- NOTE | 2018-07-02 12:43 | NUR ---
Wound Care PUP Screen Jeremias Score 17 Moderate Pup Active [id number] [address] Pump Setting - N/A Patient Sitting OOB in Chair at time of visit. Ambulates with walker. RECOMMENDATION: Alternating Pressure Air Mattress and Set to Patient Current weight 149 lbs. Encourage OOB Activity. Continue Moderate PUP. Addendum: 07/02/18 at 1251 by Silvio Fernandez RN Amended: Links added.
--- NOTE | 2018-07-02 14:53 | NUR ---
Nutrition Screen Note RD Recommendation for Physician: -Continue cardiac diet as ordered -Pt was not interested in diet education; pt stated nobody tells me that I have CHF. 07/02 Plan of Care: RD following, monitoring for tolerance and adequacy Nutrition reason for involvement: MD Consult No reason stated Primary Diagnose(s): 1. Acute on chronic respiratory failure. 2. Chronic systolic congestive heart failure. 3. Prior aortic valve replacement. 4. Atrial fibrillation. 5. Moderate protein-calorie malnutrition. 6. Leukocytosis with sepsis of unknown source, present on admission. PMH: 1. Severe COPD. 2. Peripheral vascular disease. 3. Atrial fibrillation. 4. Anemia. 5. Hypertension. Ht: 60in Wt: 149lb BMI: 29.1kg/m2 IBW: 100lb RD Assessment: (07/02) Chart reviewed. Labs and meds reviewed. 78yo F, who was admitted for worsening dyspnea and congestion. Visited pt in the room. Pt reported improvement in her appetite with >50% observed meal intake. Ensure was ordered but pt hasnt try it yet. Pt stated I will take them home with me. No complains of nausea or vomiting. Pt denied any chewing or swallowing difficulty. Pt denied any recent weight loss with UBW ~150 160lbs for the last 40 years. Will continue to monitor and follow. Current Diet: cardiac diet Malnutrition Evaluation (07/02) The patient does not meet criteria for a specified degree of malnutrition at this time. Will re-evaluate at follow-up as appropriate. Diet Education Needs Assessment: Diet education indicated, pt refused. Nutrition Care Level: low Signed: Nola Mcelroy, MS, RD, LD
--- NOTE | 2018-07-02 15:55 | Progress Note ---
DATE: Pulmonary Progress Note SUBJECTIVE: The patient feels better. She has less dyspnea. She did get up and ambulating with the help of physical therapy. PHYSICAL EXAMINATION: VITAL SIGNS: The patient is afebrile. The vital signs are stable. HEENT: Shows no facial swelling or erythema. The nasal mucosa is normal. The oropharynx is normal. LYMPHATIC: Shows no submandibular, cervical, or supraclavicular adenopathy. CARDIAC: Reveals a regular rate and rhythm with a normal S1, S2. There are no murmurs or rubs. LUNGS: Auscultation of lungs reveals clear breath sounds bilaterally. There is no wheezing. ABDOMEN: Soft, nontender. IMPRESSION: 1. Apjni-ed-mjnbunb respiratory failure. 2. Chronic systolic congestive heart failure. 3. Prior aortic valve replacement. 4. Atrial fibrillation. 5. Moderate protein-calorie malnutrition. PLAN: 1. Continue current antibiotics and await final culture results. 2. Continue current cardiac regimen. 3. Monitor INR and adjust Coumadin accordingly. 4. Nutritional supplements. 5. Physical therapy. 6. Awaiting dietary consultation. Cesar Washburn MD [facility]/MODL /[id number]
--- NOTE | 2018-07-02 16:12 | NUR ---
CASE MANAGEMENT INITIAL ASSESSMENT Salvage Engineer to bedside to discuss plan of care with patient/family. CM/SW role and care transitions discussed. Anticipated discharge plan discussed along with duration of care. CM/SW discussed patients right to make decisions in care. CM/SW work hours given. Patient lives: W HER DTR IN A 1 STORY HOME; 1 STEP UP AT ENTRANCE Admit/Transfer: ER Hospital/ER visits since last admit: PT STATES SHE WAS AT [facility] LAST WEEK FOLLOWING AN OUTPATIENT PROCEDURE POA/Emergency contact: CHANTEL / DTR @ [phone] Current/Previous Home Health: PT RECEIVES SN AND PT, BUT DOES NOT REMEMBER NAME OF HH AGENCY. CALLED PROVIDER, BUT SHE DID NOT REMEMBER. LEFT NOTE ON BOARD FOR DTR TO PROVIDE NAME OF HH. PCP/Follow-up Care: DR. HEART Current/Previous DME: [employer], HOME O2 FROM [place]. STATES SHE WAS TO RECEIVE A WC FROM A [facility] ADMISSION, BUT HAD NOT RECEIVED. NEB SUPPLIES AND MEDS FROM [facility] Other Services: PROVIDER M Roberto Carlos F, 8A - 2P Employment Status: RETIRED, [employer]T [employer] Areas of Concerns: WC THAT WAS ORDERED AT [facility] FOR TRANSPORT Referral Needs: NONE AT THIS TIME Education Needs: NONE IMM/SALEH given and signed (if applicable): DONE AT ADM Goal for discharge: RETURN HOME W HER DTR AND PROVIDER / HOME @ [phone]. STATES SHE WILL DC TOMORROW, 07/03/18 AND HER DTR WILL PICK HER UP AFTER 5PM. CM/SW left business card at the bedside with contact information. Name and number was also written on the patients whiteboard. Patient verbalized understanding of discussion. CM will follow-up with ongoing discharge and transition of care needs.
[2018-07-02] MEDS: TEMAZEPAM 15 MG CAP PO SCH (21:00)
[2018-07-03] VITALS (7 sets, daily range): BP systolic 127–159; BP diastolic 61–74
[2018-07-03] MEDS: LEVALBUTEROL HCL SOLN NEBU 0.63 MG/3 ML NEB INH SCH ×6 (00:10→20:00)
[2018-07-03] MEDS: IPRATROPIUM BROMIDE 0.02% 2.5 ML NEB NEB SCH ×4 (04:20→20:00)
[2018-07-03 05:53] LABS: BASOPHILS % 0.1 % (0.0-1.0); HEMATOCRIT 34.4 % (34.2-44.1); HEMOGLOBIN 10.8 g/dL (12.0-16.0); LYMPHOCYTES # (AUTO) 0.6 (1.0-3.2); LYMPHOCYTES % 3.9 % (18.0-39.1); MEAN CORPUSCULAR HEMOGLOBIN 29.1 pg (28-32); MEAN CORPUSCULAR HGB CONC 31.4 g/dL (31-35); MEAN CORPUSCULAR VOLUME 92.7 fL (81-99); MONOCYTES # (AUTO) 0.8 (0.2-0.8); MONOCYTES % 4.9 % (4.4-11.3); NEUTROPHILS % 90.1 % (38.7-80.0); PLATELET COUNT 291 x10e3/uL (140-360); RED BLOOD COUNT 3.71 x10e6/uL (3.6-5.1); RED CELL DISTRIBUTION WIDTH 16.6 % (11.7-14.4)
[2018-07-03 06:12] LABS: ALANINE AMINOTRANSFERASE 11 IU/L (0-55); ALBUMIN 2.5 g/dL (3.5-5.0); ALBUMIN/GLOBULIN RATIO 0.8 (0.8-2.0); ALKALINE PHOSPHATASE 144 IU/L (40-150); ANION GAP 9.4 mmol/L (8-16); BLOOD UREA NITROGEN 16 mg/dL (7-26); BUN/CREATININE RATIO 25 (6-25); CALCIUM 8.7 mg/dL (8.4-10.2); CARBON DIOXIDE 33 mmol/L (22-29); CHLORIDE 99 mmol/L (98-107); CREATININE, SERUM 0.65 mg/dL (0.57-1.11); EST GLOMERULAR FILTRATION RATE > 60 ML/MIN (60-); GLUCOSE 165 mg/dL (74-118); POTASSIUM 4.4 mmol/L (3.5-5.1); SODIUM 137 mmol/L (136-145)
[2018-07-03] MEDS: TIOTROPIUM 18 MCG INH POWDER INH SCH (06:53)
[2018-07-03] MEDS: BUDESONIDE 0.5MG/2 ML NEB NEB SCH ×2 (06:53→20:20)
[2018-07-03] MEDS ORDERED: SODIUM CHLORIDE 0.9% 250ML 250 ML ONE (08:18)
[2018-07-03] MEDS: LISINOPRIL 10 MG TAB PO SCH ×2 (08:26→16:55)
[2018-07-03] MEDS: DILTIAZEM HCL 180 MG CAP ER PO SCH (08:26)
[2018-07-03] MEDS: METHYLPREDNISOLONE SOD SUCC 40 MG/ML VIAL 1ML IV SCH (08:26)
[2018-07-03] MEDS: CEFEPIME 2 GM/NS 0.9% 100 ML 100 ML IV SCH ×2 (08:26→20:30)
[2018-07-03] MEDS: PANTOPRAZOLE SOD 40 MG TABEC PO SCH (08:26)
[2018-07-03] MEDS: OXYCODONE/ACETAMINOPHEN 5-325 1 EACH TABLET PO PRN (08:38)
[2018-07-03] MEDS ORDERED: METHYLPREDNISOLONE SOD SUCC 125 MG/2ML VIAL IV SCH (09:00)
[2018-07-03] MEDS ORDERED: WARFARIN SOD 5 MG TAB PO NR (10:00)
[2018-07-03] MEDS: VANCOMYCIN 750MG/NS 150ML IVPB 150 ML IV SCH ×2 (10:00→21:57)
[2018-07-03] MEDS: WARFARIN SOD 5 MG TAB PO SCH (16:55)
--- NOTE | 2018-07-03 17:50 | Diagnostic Imaging Report ---
EXAM: CT Chest, Abdomen and Pelvis WITH contrast INDICATION: Lymphadenopathy. COMPARISON: None. TECHNIQUE: Chest, abdomen and pelvis were scanned utilizing a multidetector helical scanner from the lung apex to the pubic symphysis before and after administration of IV contrast. Coronal and sagittal reformations were obtained. Routine protocol was performed. Scan was performed when during portal venous phase. IV CONTRAST: 100 cc Isovue-300 ORAL CONTRAST: Water RADIATION DOSE: Total DLP: 780.15 mGy*cm Estimated effective dose: (DLP x 0.015 x size factor) mSv COMPLICATIONS: None FINDINGS: LINES and TUBES: None. LUNGS AND AIRWAYS: Left upper lobe subsegmental atelectasis. Right upper lobe subsegmental atelectasis. 1.1 cm calcified granuloma in the posterior lateral right lower lobe. Bibasilar subsegmental atelectasis. 1.6 cm subpleural groundglass density in the left upper lobe anteriorly on image 20 series 2 is nonspecific. Airways are normal. PLEURA: Trace left pleural effusion. HEART AND MEDIASTINUM: 6 mm low-attenuation lesion in the right thyroid lobe on images 6 series 2. All. No mediastinal, hilar or axillary lymphadenopathy. The heart is normal in size.. There is no pericardial effusion. There are moderate atherosclerotic calcifications in the aorta and coronary arteries. HEPATOBILIARY: Millimeter hypodensity in the lateral segment of the left hepatic lobe on image 44 series 2. No biliary ductal dilation. GALLBLADDER: No radio-opaque stones or sludge. No wall thickening. SPLEEN: No splenomegaly. PANCREAS: No focal masses or ductal dilatation. ADRENALS: No adrenal nodules KIDNEYS/URETERS: Kidneys enhance symmetrically. No hydronephrosis. 3.7 cm cyst in the lateral anterior interpolar region of the right kidney. 1.5 cm cyst in the medial upper interpolar region of the right kidney. Bilateral vascular renal calcifications. No stones. GI TRACT: No abnormal distention, wall thickening, or evidence of bowel obstruction. There are diverticula within the colon without evidence of diverticulitis. Appendix is normal. PELVIC ORGANS/BLADDER: The uterus is absent. 3.6 cm low-attenuation lesion in the vaginal introitus consistent with a cyst. LYMPH NODES: No lymphadenopathy. VESSELS: There is moderate atherosclerotic disease in the aorta and major arterial branches. PERITONEUM / RETROPERITONEUM: No free air or fluid. BONES: Median sternotomy wires. Compression fractures of T5 with diffuse sclerosis and T7. Status post kyphoplasty of T8 and T10. Mild loss of height of T12. Grade 1 anterolisthesis of L5 in relation to S1. Generalized osteopenia. SOFT TISSUES: Unremarkable. IMPRESSION: 1. No evidence of mediastinal or abdominal lymphadenopathy. 2. 1.6 cm groundglass density in the left upper lobe; recommend follow-up CT chest nodule protocol in 6 months to evaluate stability or lack there of. 3. Trace left pleural effusion. Bibasilar and left upper lobe subsegmental/segmental atelectasis. 4. Coronary artery disease. 5. Compression fractures of T5 with diffuse sclerosis and T7. Status post kyphoplasty of T8 and T10. Mild loss of height of T12. Grade 1 anterolisthesis of L5 in relation to S1. Signed by: Dr. Mike Vasques M.D. on 07/03/2018 5:46 PM
--- NOTE | 2018-07-03 19:05 | NUR ---
Bedside rounds completed with morning nurse. Pt alert to name. Lying in bed HOB 45 degrees. Denies pain at this time. O2 @3L via n/c. Call bush within reach. Will continue to monitor.
[2018-07-03] MEDS ORDERED: ALBUTEROL SULF 0.083% NEB SOLN 3 ML NEB INH PRN (19:45)
[2018-07-03] MEDS: TEMAZEPAM 15 MG CAP PO SCH (21:57)
--- NOTE | 2018-07-03 22:37 | Consultation ---
DATE OF CONSULTATION: REASON FOR CONSULTATION: Pneumonia, recommendation of antibiotic. HISTORY OF PRESENT ILLNESS: This patient who is a 78-year-old white female, she is telling me she has been in the hospital since May. Originally, she was in [place] where she had some work done on her vascular disease. She had stent placement. She was there for six days or so. She was discharged. The patient has been having recurrent pneumonia recently. She does have underlying COPD and she is on home oxygen. After her discharge from [place], she was in [place] again for a few days with pneumonia. She was discharged home. She was there for a few days and she is coming back with shortness of breath and cough. She is telling me that the cough is productive of yellow sputum and that her oxygen level has increased. She used to be on 2 L, now she is on 3-4. Her oxygen level was down to 80%. The patient was admitted on June 30. She has been on antibiotics since then. Infectious Disease was asked to see the patient. She is telling me she is feeling better since she came here, but she is still having cough and shortness of breath. The patient does have underlying history of COPD, peripheral vascular disease, atrial fibrillation, anemia, and hypertension. PAST SURGICAL HISTORY: She had vertebroplasty, aortic valve replacement with prosthetic valve. Also when she was in [place], she was telling me she fell and she fractured her vertebrae. SOCIAL HISTORY: There is no smoking, drug abuse, or alcohol abuse. She lives with her daughter. FAMILY HISTORY: Noncontributory. ALLERGIES: PENICILLIN, PLAVIX SKIN RASH. REVIEW OF SYSTEMS: At the present time: HEENT: There is no headache or visual change or hearing changes. GENERAL: She is still weak, but she states she is better. She still has shortness of breath, still has some cough, but better since she came here. The cough is productive of yellow sputum still, but the amount has been subsided. JOINTS: She has chronic aches and pain. There is no redness or swelling. SKIN: There is no rash. GI: Negative. : Negative. PSYCH: Negative. BREAST: Negative. LABORATORY DATA: All reviewed. When she first came, her white count was 24.58, now is 15.53, hemoglobin 10.8, platelets 291. Her differential, she had 81% . Sodium is 137, potassium 4.4, creatinine 0.65, vancomycin trough on July 03 was 14.7. She had chest x-ray and CT on June 30. CT of the chest as well as CT lumbar spine all reviewed, test results reviewed. The patient had mediastinal nodes. PHYSICAL EXAMINATION: GENERAL: She is currently alert, does not seem to be in acute distress. Follows commands and oriented x3. HEENT: Normocephalic, not icteric. NECK: Supple. No JVD. No lymphadenopathy. No thyromegaly. CHEST: Few rhonchi and crackles bilaterally. HEART: S1, S2. No S3, S4, or murmur. ABDOMEN: Soft. Bowel sounds present. No tenderness. No hepatosplenomegaly. EXTREMITIES: No edema. SKIN: No rash. MEDICATION LIST: She is on Xopenex, vancomycin, Percocet, Solu-Medrol and cefepime. IMPRESSION: 1. Healthcare-associated pneumonia and the patient has chronic obstructive pulmonary disease and obesity, IV vancomycin and cefepime. She still coughs, has chest rhonchi. The patient also had lymphadenopathy. We will discuss with Pulmonary. Recheck CT scan. We want to consider biopsy if lymphadenopathy persist. We will follow up. 2. Chronic obstructive pulmonary disease. 3. History of valve replacement. 4. Chronic systolic congestive heart failure. We will follow with you. MD RENETTA Gtz/DIPIKA /[id number]
[2018-07-04] VITALS (7 sets, daily range): BP systolic 133–169; BP diastolic 61–86
[2018-07-04] MEDS: OXYCODONE/ACETAMINOPHEN 5-325 1 EACH TABLET PO PRN (04:00)
[2018-07-04] MEDS: LEVALBUTEROL HCL SOLN NEBU 0.63 MG/3 ML NEB INH SCH ×6 (04:15→23:05)
[2018-07-04] MEDS: IPRATROPIUM BROMIDE 0.02% 2.5 ML NEB NEB SCH ×5 (04:15→23:40)
[2018-07-04 05:48] LABS: BASOPHILS # (AUTO) 0.1 (0.0-0.1); BASOPHILS % 0.4 % (0.0-1.0); EOSINOPHILS # (AUTO) 0.1 (0.0-0.4); HEMATOCRIT 37.4 % (34.2-44.1); HEMOGLOBIN 11.6 g/dL (12.0-16.0); LYMPHOCYTES # (AUTO) 0.9 (1.0-3.2); LYMPHOCYTES % 6.8 % (18.0-39.1); MEAN CORPUSCULAR HEMOGLOBIN 28.5 pg (28-32); MEAN CORPUSCULAR VOLUME 91.9 fL (81-99); MONOCYTES # (AUTO) 0.7 (0.2-0.8); MONOCYTES % 5.5 % (4.4-11.3); NEUTROPHILS # (AUTO) 10.7 (2.1-6.9); NEUTROPHILS % 84.2 % (38.7-80.0); PLATELET COUNT 315 x10e3/uL (140-360); RED BLOOD COUNT 4.07 x10e6/uL (3.6-5.1); RED CELL DISTRIBUTION WIDTH 16.1 % (11.7-14.4)
[2018-07-04 05:52] LABS: INR 1.52; PROTHROMBIN TIME 18.9 seconds (11.9-14.5)
[2018-07-04 05:56] LABS: ALANINE AMINOTRANSFERASE 11 IU/L (0-55); ALBUMIN 2.8 g/dL (3.5-5.0); ALBUMIN/GLOBULIN RATIO 0.8 (0.8-2.0); ALKALINE PHOSPHATASE 143 IU/L (40-150); ANION GAP 12.3 mmol/L (8-16); BLOOD UREA NITROGEN 14 mg/dL (7-26); CALCIUM 8.8 mg/dL (8.4-10.2); CARBON DIOXIDE 33 mmol/L (22-29); CHLORIDE 96 mmol/L (98-107); GLUCOSE 183 mg/dL (74-118); POTASSIUM 4.3 mmol/L (3.5-5.1); SODIUM 137 mmol/L (136-145)
[2018-07-04 06:16] LABS: BUN/CREATININE RATIO 22 (6-25); CREATININE, SERUM 0.64 mg/dL (0.57-1.11); EST GLOMERULAR FILTRATION RATE > 60 ML/MIN (60-)
[2018-07-04] MEDS: BUDESONIDE 0.5MG/2 ML NEB NEB SCH ×2 (07:00→19:15)
--- NOTE | 2018-07-04 07:30 | NUR ---
PT IS ON BED WITH HER NASAL CANNULA ON RUNNING AT 3L/MIN. SIDE RAILS UP X2, BED IN LOWEST POSITION, AND CALL CLEMONS WITHIN REACH.
[2018-07-04] MEDS: TIOTROPIUM 18 MCG INH POWDER INH SCH (07:31)
[2018-07-04] MEDS: DILTIAZEM HCL 180 MG CAP ER PO SCH (09:10)
[2018-07-04] MEDS: LISINOPRIL 10 MG TAB PO SCH ×2 (09:10→19:38)
[2018-07-04] MEDS ORDERED: WARFARIN SOD 5 MG TAB PO NR (09:30)
[2018-07-04] MEDS: PANTOPRAZOLE SOD 40 MG TABEC PO SCH (10:07)
[2018-07-04] MEDS: METHYLPREDNISOLONE SOD SUCC 40 MG/ML VIAL 1ML IV SCH (10:07)
[2018-07-04] MEDS: CEFEPIME 2 GM/NS 0.9% 100 ML 100 ML IV SCH ×2 (11:03→19:30)
[2018-07-04 11:21] LABS: LYMPHOCYTES % (MANUAL) 6 % (19-48); METAMYELOCYTES % (MANUAL) 1 % (0-0); MONOCYTES % (MANUAL) 5 % (3.4-9.0); MYELOCYTES % (MANUAL) 1 % (0-0); NEUTROPHILS % (MANUAL) 86 % (40-74); PLATELET ESTIMATE ADEQUATE; PLATELET MORPHOLOGY COMMENT FEW LARGE
[2018-07-04 11:22] LABS: ANISOCYTOSIS SLIGHT; RBC MORPHOLOGY COMMENT NORMAL
[2018-07-04] MEDS: VANCOMYCIN 750MG/NS 150ML IVPB 150 ML IV SCH ×2 (12:24→21:00)
--- NOTE | 2018-07-04 15:22 | Progress Note ---
DATE: SUBJECTIVE: The patient was seen by Infectious Disease yesterday. A CT scan of the chest showed trace left pleural effusion and some bibasilar and left upper lobe atelectasis. There was a compression fracture of unclear age as well as a 1.6 cm ground-glass density in the left upper lobe. OBJECTIVE: VITAL SIGNS: The patient is afebrile. Saturation is 100% on 3 L. HEENT: Shows no facial swelling or erythema. The oropharynx is normal. LYMPHATIC: Shows no submandibular, cervical, or supraclavicular adenopathy. CARDIAC: Reveals regular rate and rhythm with normal S1 and S2. There are no murmurs or rubs. LUNGS: Auscultation of lungs reveals rhonchorous breath sounds bilaterally. There is no wheezing. ABDOMEN: Soft and nontender. There is no rebound or guarding. EXTREMITIES: Show no leg edema or calf tenderness. There is no cyanosis or clubbing. SKIN: Shows no rashes. NEUROLOGICAL: Shows no focal abnormalities. IMPRESSION: 1. Pneumonia with sepsis, present on admission. 2. Acute on chronic respiratory failure. 3. Chronic systolic congestive heart failure. 4. Atrial fibrillation. 5. Prior aortic valve replacement. PLAN: 1. Continue antibiotics. 2. Repeat white blood cell count tomorrow. 3. Continue oxygen and wean as tolerated. 4. Continue physical therapy. Cesar Washburn MD [facility]/MICHAELL /[id number]
--- NOTE | 2018-07-04 18:30 | NUR ---
PT LAYING IN BED WITHOUT ANY DISTRESS. CALL CLEMONS WITHIN REACH, SIDE RAILS UPX2, AND BED IN LOW POSITION.
--- NOTE | 2018-07-04 20:00 | NUR ---
Received change of shift report from AM nurse. Walking rounds completed.
[2018-07-04] MEDS: TEMAZEPAM 15 MG CAP PO SCH (21:00)
--- NOTE | 2018-07-04 21:00 | NUR ---
Patient AAOx3. Denies pain or discomfort at this time. O2 at 2-3 L n/c. IV leaking , resited IV to left wrist 20G x1 stick. Tele SR/ST. Repositioned patient in bed.
[2018-07-05] VITALS (7 sets, daily range): BP systolic 120–168; BP diastolic 60–77
[2018-07-05] MEDS: LEVALBUTEROL HCL SOLN NEBU 0.63 MG/3 ML NEB INH SCH ×6 (02:50→23:30)
[2018-07-05] MEDS: OXYCODONE/ACETAMINOPHEN 5-325 1 EACH TABLET PO PRN (03:31)
--- NOTE | 2018-07-05 04:30 | NUR ---
Patient requested pain med for pain gen = 5-6. Meds given as ordered by MD. Patient up to [facility] with asst.
[2018-07-05] MEDS: TIOTROPIUM 18 MCG INH POWDER INH SCH (06:00)
[2018-07-05] MEDS: BUDESONIDE 0.5MG/2 ML NEB NEB SCH ×2 (07:27→19:15)
[2018-07-05] MEDS: IPRATROPIUM BROMIDE 0.02% 2.5 ML NEB NEB SCH ×4 (07:27→23:30)
--- NOTE | 2018-07-05 07:30 | NUR ---
PT IS SEMI-FOWLERS POSITION, NO S/S OF DISTRESS, NC RUNNING AT 3L/MIN. BED IN LOWEST POSITION, SIDE RAILS UPX2, AND CALL CLEMONS WITHIN REACH.
[2018-07-05] MEDS ORDERED: SODIUM CHLORIDE 0.9% 250ML 250 ML ONE (07:55)
[2018-07-05] MEDS: CEFEPIME 2 GM/NS 0.9% 100 ML 100 ML IV SCH ×2 (08:01→19:30)
[2018-07-05] MEDS: PANTOPRAZOLE SOD 40 MG TABEC PO SCH (08:01)
[2018-07-05] MEDS: DILTIAZEM HCL 180 MG CAP ER PO SCH (08:02)
[2018-07-05] MEDS: LISINOPRIL 10 MG TAB PO SCH ×2 (08:02→17:02)
[2018-07-05 09:10] LABS: BASOPHILS # (AUTO) 0.1 (0.0-0.1); BASOPHILS % 0.4 % (0.0-1.0); EOSINOPHILS # (AUTO) 0.1 (0.0-0.4); EOSINOPHILS % 0.6 % (0.0-6.0); HEMATOCRIT 36.2 % (34.2-44.1); HEMOGLOBIN 11.7 g/dL (12.0-16.0); LYMPHOCYTES # (AUTO) 1.1 (1.0-3.2); LYMPHOCYTES % 8.2 % (18.0-39.1); MEAN CORPUSCULAR HEMOGLOBIN 29.3 pg (28-32); MEAN CORPUSCULAR HGB CONC 32.3 g/dL (31-35); MEAN CORPUSCULAR VOLUME 90.5 fL (81-99); MONOCYTES # (AUTO) 0.9 (0.2-0.8); MONOCYTES % 6.7 % (4.4-11.3); NEUTROPHILS # (AUTO) 11.1 (2.1-6.9); PLATELET COUNT 322 x10e3/uL (140-360)
[2018-07-05 09:20] LABS: INR 1.59; PROTHROMBIN TIME 19.6 seconds (11.9-14.5)
[2018-07-05] MEDS: VANCOMYCIN 750MG/NS 150ML IVPB 150 ML IV SCH ×2 (10:30→21:00)
[2018-07-05 10:33] LABS: LYMPHOCYTES % (MANUAL) 16 % (19-48); MONOCYTES % (MANUAL) 8 % (3.4-9.0); NEUTROPHILS % (MANUAL) 76 % (40-74)
[2018-07-05 10:36] LABS: PLATELET ESTIMATE ADEQUATE; PLATELET MORPHOLOGY COMMENT NORMAL; RBC MORPHOLOGY COMMENT NORMAL
--- NOTE | 2018-07-05 10:57 | Progress Note ---
DATE: Pulmonary Critical Care Progress Note SUBJECTIVE: The patient feels better. She is using her BiPAP at night. She has less fevers. She has less cough and less congestion. PHYSICAL EXAMINATION: VITAL SIGNS: The blood pressure is 168/77, saturation is 100% on 2 L. HEENT: Shows no facial swelling or erythema. The nasal mucosa is normal. The oropharynx is normal. LYMPHATIC: Shows no submandibular, cervical, or supraclavicular adenopathy. CARDIAC: Reveals a regular rate and rhythm with normal S1and S2. There are no murmurs or rubs. LUNGS: Auscultation of lungs reveals clear breath sounds bilaterally. There is no wheezing. ABDOMEN: Soft, nontender. There is no rebound or guarding. EXTREMITIES: Show no leg edema or calf tenderness. There is no cyanosis or clubbing. SKIN: Shows no rashes. NEUROLOGICAL: Shows no focal abnormalities. LABORATORY DATA: White blood cell count is 13.8, hemoglobin 11.7, and the platelet count is 322. The BUN to creatinine ratio is 14 to 0.64 and the other electrolytes are within normal limits. IMPRESSION: 1. Acute on chronic respiratory failure. 2. Chronic obstructive pulmonary disease with acute exacerbation. 3. Pneumonia with sepsis, present on admission. 4. Chronic systolic congestive heart failure. 5. Atrial fibrillation. 6. Prior aortic valve replacement. PLAN: 1. The patient will continue current antibiotics. 2. Continue anticoagulation. 3. Continue BiPAP at home. 4. Physical therapy. 5. Possible discharge tomorrow. Cesar Washburn MD [facility]/DIPIKA /[id number]
--- NOTE | 2018-07-05 16:00 | NUR ---
ASSISTED PT TO THE BEDSIDE COMMODE. PT HAD SMALL BOWEL MOVEMENT. ASSISTED PT BACK TO THE RECLINER. PT WEARING NC RUNNING AT 3L/MIN. NO S/S OF DISTRESS. CALL CLEMONS WITHIN REACH.
[2018-07-05] MEDS: WARFARIN SOD 5 MG TAB PO SCH (17:01)
--- NOTE | 2018-07-05 17:50 | NUR ---
ASSISTED PT BACK TO BED. PT REFUSED TO ELEVATED HOB. PT WANTS TO BE SUPINE. O2 RUNNING AT 3L/MIN VIA NC. NO S/S OF DISTRESS. BED IN LOWEST POSITION, SIDE RAILS UP X2, AND CALL CLEMONS WITHIN REACH.
--- NOTE | 2018-07-05 18:44 | NUR ---
NO S/S OF DISTRESS, BED IN LOWEST POSITION, SIDE RAILS UP X2, AND CALL CLEMONS WITHIN REACH. 02 RUNNING AT 3L/MIN.
--- NOTE | 2018-07-05 19:32 | NUR ---
Received change of shift report from am nurse. Walking rounds completed. Patient in bed. receiving a neb tx. No noted pain or discomfort.
[2018-07-05] MEDS: TEMAZEPAM 15 MG CAP PO SCH (20:20)
--- NOTE | 2018-07-06 | NUR ---
Patient in bed. Refused to turn q2hrs. IV intact to left wrist 20G. Vanco trough done. Vanco given. Patient AAOx3.Continue monitor.
[2018-07-06 00:24] VITALS: BP 147/69
[2018-07-06] MEDS: LEVALBUTEROL HCL SOLN NEBU 0.63 MG/3 ML NEB INH SCH ×2 (03:45→07:15)
[2018-07-06 04:39] VITALS: BP 152/67
[2018-07-06] MEDS: OXYCODONE/ACETAMINOPHEN 5-325 1 EACH TABLET PO PRN (05:00)
--- NOTE | 2018-07-06 05:58 | NUR ---
Patient resting quitly at this time. No c/o at this time.
[2018-07-06] MEDS: TIOTROPIUM 18 MCG INH POWDER INH SCH (06:00)
[2018-07-06] MEDS: BUDESONIDE 0.5MG/2 ML NEB NEB SCH (07:15)
[2018-07-06] MEDS: IPRATROPIUM BROMIDE 0.02% 2.5 ML NEB NEB SCH (07:15)
--- NOTE | 2018-07-06 07:30 | NUR ---
REC'D PT IN SUPINE POSITION. O2 RUNNING AT 3L/MIN VIA NC. NO S/S OF DISTRESS. PLACED DISCHARGE ORDERS FOR TODAY. ORDERS WERE CARRIED OUT. BED IN LOWEST POSITION, SIDE RAILS UP X2, AND CALL CLEMONS WITHIN REACH.
[2018-07-06 07:40] VITALS: BP 129/61
[2018-07-06] MEDS: DILTIAZEM HCL 180 MG CAP ER PO SCH (08:55)
[2018-07-06] MEDS: LISINOPRIL 10 MG TAB PO SCH (08:56)
[2018-07-06] MEDS: PANTOPRAZOLE SOD 40 MG TABEC PO SCH (08:59)
[2018-07-06] MEDS ORDERED: AZITHROMYCIN250 MG PO (09:22)
[2018-07-06 10:15] VITALS: BP 129/61
[2018-07-06 11:10] VITALS: BP 155/76
--- NOTE | 2018-07-06 11:20 | NUR ---
PT DISCHARGED VIA WHEELCHAIR. IV ON L HAND WAS REMOVED AND WITHOUT ANY COMPLICATIONS. TRANSFERRED WITH O2 AT 3L/MIN. DAUGHTER HAD HOME O2 IN THE CAR. NO S/S OF DISTRESS.
--- NOTE | 2018-07-07 06:05 | Discharge Summary ---
DISCHARGE DIAGNOSES: 1. Beizz-du-nbjoezk respiratory failure. 2. Chronic obstructive pulmonary disease with acute exacerbation. 3. Pneumonia with sepsis, present on admission. 4. Chronic systolic congestive heart failure. 5. Atrial fibrillation. 6. Prior aortic valve replacement. DISCHARGE MEDICATIONS: 1. Albuterol sulfate through the nebulizer q.i.d. p.r.n. 2. Brovana 15 mcg per 2 mL through the nebulizer twice a day. 3. Atorvastatin 20 mg p.o. daily. 4. Baclofen 10 mg p.o. t.i.d. 5. Budesonide 0.5 mg through the nebulizer twice daily. 6. Voltaren gel. 7. Diltiazem 180 mg p.o. daily. 8. Colace 100 mg p.o. daily. 9. Lisinopril 5 mg p.o. b.i.d. 10. Lorazepam 0.5 mg p.o. t.i.d. p.r.n. 11. Percocet 5 mg p.o. b.i.d. p.r.n. 12. Restoril 15 mg p.o. at bedtime p.r.n. 13. Spiriva capsule one p.o. q.a.m. inhaled. 14. Warfarin 5 mg p.o. daily. RADIOGRAPHIC DATA: Thoracic and lumbar CT shows diffuse bony mineralization with age-indeterminate compression fractures. CT scan of the chest shows 1.6 cm ground-glass density in the left upper lobe as well as bibasilar left upper lobe atelectasis. The patient also has compression fractures of T5, T8, T10, of undetermined age. CONSULTING PHYSICIANS: 1. Dr. Surinder Washburn of Cardiology. 2. Dr. Mireles of Infectious Disease. HISTORY OF PRESENT ILLNESS: The patient is a 78-year-old woman. She has a history of severe COPD as well as atrial fibrillation. She was recently hospitalized at [facility] with the compression fracture that required kypho-vertebroplasty. She subsequently went to inpatient rehab. She now returns complaining of congestion and cough. She has some phlegm production. She has no fevers. HOSPITAL COURSE: The patient was admitted. She initially received Solu-Medrol as well as bronchodilators and antibiotics. She had some improvement with this. The patient was also seen in consultation by Cardiology. She was continued on medications for atrial fibrillation including anticoagulation and medications for rate control. Her hospitalization was further complicated by persistent leukocytosis. ID was consulted and they ordered a CT scan. The CT scan showed some basilar atelectasis or infiltrate suggestive of possible pneumonia. She was started on appropriate antibiotics and improved. DISPOSITION: The patient will be discharged home. She will follow up with Dr. Cesar Washburn in 7 to 10 days. Cesar Washburn MD [facility]/MODL /[id number]
== END 2018-07-06 11:11 | disposition home or self-care (01) | DRG 871 ==
LOC: ER 14:49 → ERHOLD 17:05 → IMCU 07-01 10:38 → MED/SURG3 07-01 18:08
PROVIDERS: ADMIT Internal Medicine Critical Care Medicine; ATTEND Internal Medicine Critical Care Medicine
DX: A41.9 Sepsis, unspecified organism (principal); J15.9 Unspecified bacterial pneumonia; J96.20 Acute and chronic respiratory failure, unspecified whether with hypoxia or hypercapnia; J44.0 Chronic obstructive pulmonary disease with (acute) lower respiratory infection; E44.0 Moderate protein-calorie malnutrition; I50.22 Chronic systolic (congestive) heart failure; J44.1 Chronic obstructive pulmonary disease with (acute) exacerbation; M48.54XA Collapsed vertebra, not elsewhere classified, thoracic region, initial encounter for fracture; R65.20 Severe sepsis without septic shock; Z88.5 Allergy status to narcotic agent; Z88.0 Allergy status to penicillin; Z88.8 Allergy status to other drugs, medicaments and biological substances; I25.10 Atherosclerotic heart disease of native coronary artery without angina pectoris; F41.9 Anxiety disorder, unspecified; D64.9 Anemia, unspecified; E78.5 Hyperlipidemia, unspecified; Z86.73 Personal history of transient ischemic attack (TIA), and cerebral infarction without residual deficits; F17.210 Nicotine dependence, cigarettes, uncomplicated; Z82.49 Family history of ischemic heart disease and other diseases of the circulatory system; D72.829 Elevated white blood cell count, unspecified; M54.9 Dorsalgia, unspecified; Z95.2 Presence of prosthetic heart valve; E66.9 Obesity, unspecified; I11.0 Hypertensive heart disease with heart failure; Z68.29 Body mass index [BMI] 29.0-29.9, adult; I48.0 Paroxysmal atrial fibrillation; Z79.01 Long term (current) use of anticoagulants
CPT/HCPCS: 36415; 36600; 71045; 71260; 72129; 72132; 74177; 80053; 80202; 81001; 82550; 82553; 82805; 83605; 83735; 83880; 84134; 84145; 84484; 85025; 85610; 85730; 87040; 87086; 93005; 93306; 94640; 99285; J0456; J2920; J2930; J7040; J7050; Q9967

== ENCOUNTER 2019-02-18 10:24 | Emergency (ER) | payer MEDICARE, OTHER ==
[~2019-02-18] VITALS: Ht 152.4 cm; Wt 68.5 kg
[~2019-02-18 10:24] MED LIST changes: +ATORVASTATIN CA20 MG PO; +BACLOFEN10 MG PO; +LORAZEPAM0.5 MG PO; +VOLTAREN100 GM TOP; +WARFARIN SODIU2.5 MG PO
[2019-02-18] MEDS ORDERED: KETOROLAC TROMETHAMINE 30 MG/ML VIAL IM STA (11:03)
[2019-02-18] MEDS ORDERED: DEXAMETHASONE SOD PHOS 10 MG/1 ML VIAL IM ONE (11:15)
--- NOTE | 2019-02-18 11:49 | Diagnostic Imaging Report ---
Right wrist, 3 views. History: Right wrist pain. Findings: The soft tissues are normal. The bones are diffusely osteopenic. There is no evidence of fracture or dislocation. There are no lytic or sclerotic lesions. There is mild radiocarpal and severe first carpometacarpal joint space narrowing with subchondral sclerosis. 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 Signed by: Gaudencio Shafer on 02/18/2019 11:45 AM
== END 2019-02-18 15:29 | disposition home or self-care (01) ==
LOC: ER 10:24
DX: M25.531 Pain in right wrist (principal); M19.031 Primary osteoarthritis, right wrist; I10 Essential (primary) hypertension; E78.5 Hyperlipidemia, unspecified; J44.9 Chronic obstructive pulmonary disease, unspecified; I48.91 Unspecified atrial fibrillation; I25.10 Atherosclerotic heart disease of native coronary artery without angina pectoris; F41.9 Anxiety disorder, unspecified; Z85.3 Personal history of malignant neoplasm of breast; Z85.828 Personal history of other malignant neoplasm of skin; F17.210 Nicotine dependence, cigarettes, uncomplicated
CPT/HCPCS: 36415; 73110; 84550; 87400; 99284; J1100; J1885

== ENCOUNTER 2020-03-08 15:52 | Inpatient (IN) | payer MEDICARE, OTHER ==
[~2020-03-08] VITALS: Ht 152.4 cm; Wt 68.5 kg
[2020-03-08 18:20] VITALS: BP 141/74
[2020-03-08] MEDS ORDERED: MORPHINE SULFATE INJ 4 MG/ML INJ 1ML IV PRN (19:30)
[2020-03-08 20:00] VITALS: BP 145/70
[2020-03-08] MEDS: LEVALBUTEROL HCL SOLN NEBU 0.63 MG/3 ML NEB INH PRN (20:15)
[2020-03-08] MEDS ORDERED: METOPROLOL TARTRATE INJ 1 MG/ML VIAL IV PRN (20:45)
[2020-03-08] MEDS ORDERED: DOCUSATE SODIUM 100 MG CAP PO PRN (20:45)
[2020-03-08] MEDS ORDERED: TEMAZEPAM 7.5 MG CAP PO PRN (20:45)
[2020-03-08] MEDS ORDERED: ACETAMINOPHEN 325 MG TAB PO PRN (20:45)
[2020-03-08] MEDS ORDERED: SENNOSIDES 8.6 MG TAB PO PRN (20:45)
[2020-03-08] MEDS ORDERED: POLYETHYLENE GLYCOL 3350 17 GM PACK PO PRN (20:45)
[2020-03-08] MEDS: ALBUTEROL SULF 0.083% NEB SOLN 3 ML NEB INH SCH (21:00)
[2020-03-08] MEDS: BUDESONIDE 0.5MG/2 ML NEB NEB SCH (21:00)
[2020-03-08] MEDS ORDERED: FAMOTIDINE 20 MG TAB PO ONE (21:00)
[2020-03-08] MEDS ORDERED: OXYCODONE/ACETAMINOPHEN 5-325 1 EACH TABLET PO STA (22:31)
[2020-03-08] MEDS: LISINOPRIL 10 MG TAB PO SCH (23:38)
[2020-03-08] MEDS: TEMAZEPAM 15 MG CAP PO SCH (23:39)
[2020-03-08 23:56] VITALS: BP 145/70
[2020-03-09] VITALS (9 sets, daily range): BP systolic 111–166; BP diastolic 57–91
[2020-03-09] MEDS: LEVALBUTEROL HCL SOLN NEBU 0.63 MG/3 ML NEB INH PRN (01:45)
[2020-03-09] MEDS: MORPHINE SULFATE INJ 2 MG/ML SYR IV PRN ×4 (04:12→22:12)
[2020-03-09 06:56] LABS: BASOPHILS # (AUTO) 0.1 (0.0-0.1); BASOPHILS % 0.8 % (0.0-1.0); EOSINOPHILS # (AUTO) 0.2 (0.0-0.4); EOSINOPHILS % 2.6 % (0.0-6.0); HEMATOCRIT 34.2 % (34.2-44.1); HEMOGLOBIN 10.5 g/dL (12.0-16.0); LYMPHOCYTES % 10.7 % (18.0-39.1); MEAN CORPUSCULAR HEMOGLOBIN 27.3 pg (28-32); MEAN CORPUSCULAR HGB CONC 30.7 g/dL (31-35); MEAN CORPUSCULAR VOLUME 89.1 fL (81-99); MONOCYTES # (AUTO) 0.9 (0.2-0.8); MONOCYTES % 9.4 % (4.4-11.3); NEUTROPHILS % 76.2 % (38.7-80.0); PLATELET COUNT 352 x10e3/uL (140-360); RED BLOOD COUNT 3.84 x10e6/uL (3.6-5.1); RED CELL DISTRIBUTION WIDTH 15.5 % (11.7-14.4)
[2020-03-09 07:22] LABS: INR 1.55; PARTIAL THROMBOPLASTIN TIME 32.2 seconds (23.8-35.5); PROTHROMBIN TIME 19.7 seconds (11.9-14.5)
[2020-03-09] MEDS ORDERED: FAMOTIDINE 20 MG TAB PO SCH (07:30)
[2020-03-09] MEDS: ALBUTEROL SULF 0.083% NEB SOLN 3 ML NEB INH SCH ×4 (07:34→21:10)
[2020-03-09] MEDS: BUDESONIDE 0.5MG/2 ML NEB NEB SCH ×2 (07:34→21:10)
[2020-03-09] MEDS: DILTIAZEM HCL 180 MG CAP ER PO SCH (08:20)
[2020-03-09] MEDS: PANTOPRAZOLE SOD 40 MG TABEC PO SCH (08:20)
[2020-03-09] MEDS: LIDOCAINE 4% PATCH TP SCH (08:20)
[2020-03-09] MEDS: LISINOPRIL 10 MG TAB PO SCH ×2 (08:20→17:43)
[2020-03-09] MEDS: ATORVASTATIN 20 MG TAB PO SCH (08:20)
[2020-03-09] MEDS: DOCUSATE SODIUM 100 MG CAP PO SCH ×2 (08:20→17:43)
[2020-03-09 09:12] LABS: ALANINE AMINOTRANSFERASE 7 IU/L (0-55); ALBUMIN 3.3 g/dL (3.5-5.0); ALBUMIN/GLOBULIN RATIO 0.9 (0.8-2.0); ALKALINE PHOSPHATASE 163 IU/L (40-150); ANION GAP 13.9 mmol/L (8-16); BLOOD UREA NITROGEN 10 mg/dL (7-26); BUN/CREATININE RATIO 13 (6-25); CALCIUM 8.5 mg/dL (8.4-10.2); CARBON DIOXIDE 30 mmol/L (22-29); CHLORIDE 99 mmol/L (98-107); CREATININE, SERUM 0.79 mg/dL (0.57-1.11); EST GLOMERULAR FILTRATION RATE > 60 ML/MIN (60-); GLUCOSE 102 mg/dL (74-118); POTASSIUM 4.9 mmol/L (3.5-5.1); SODIUM 138 mmol/L (136-145)
[2020-03-09 09:13] LABS: CHOL/HDL RATIO 2.7 (3.0-3.6); PHOSPHORUS 3.2 MG/DL (2.3-4.7)
[2020-03-09 09:33] LABS: THYROID STIMULATING HORMONE 0.432 uIU/mL (0.350-4.940)
[2020-03-09] MEDS ORDERED: GADOBENATE DIMEGLUMINE 1 ML IV ONE (10:09)
[2020-03-09] MEDS ORDERED: NALOXONE HCL INJ 0.4 MG/ML AMP IV PRN (10:15)
[2020-03-09] MEDS: OXYCODONE/ACETAMINOPHEN 5-325 1 EACH TABLET PO PRN (12:54)
[2020-03-09] MEDS: ONDANSETRON HCL INJ 2MG/ML 2ML 2 MG/ML VIAL IV PRN ×2 (13:05→17:29)
[2020-03-09] MEDS: METHYLPREDNISOLONE SOD SUCC 125 MG/2ML VIAL IV SCH ×2 (16:00→21:43)
[2020-03-09] MEDS: IRON SUCROSE 100 MG in SODIUM CHLORIDE 0.9% 100 ML 100 ML IV SCH (17:00)
[2020-03-09] MEDS: WARFARIN SOD 5 MG TAB PO SCH (17:43)
[2020-03-09 19:25] LABS: CLARITY,URINE CLEAR (CLEAR); COLOR,URINE YELLOW (YELLOW); KETONES,URINE NEGATIVE (NEGATIVE); LEUKOCYTE ESTERASE ,URINE TRACE (NEGATIVE); NITRITE,URINE NEGATIVE (NEGATIVE); PROTEIN,URINE DIPSTICK NEGATIVE (NEGATIVE); URINE UROBILINOGEN 0.2 mg/dL (0.2 - 1)
[2020-03-09 19:38] LABS: BACTERIA,URINE RARE /HPF; EPITHELIAL CELLS,URINE FEW /LPF; RBC,URINE 0-5 /HPF (0-5); WBC,URINE (MAN) 0-5 /HPF (0-5)
[2020-03-09] MEDS: TEMAZEPAM 15 MG CAP PO SCH (21:43)
[2020-03-10] VITALS (9 sets, daily range): BP systolic 125–151; BP diastolic 62–85
[2020-03-10] MEDS: ARFORMOTEROL TARTRATE 15 MCG INH SCH ×3 (00:01→19:00)
[2020-03-10] MEDS: MORPHINE SULFATE INJ 2 MG/ML SYR IV PRN (02:21)
[2020-03-10 06:19] LABS: BASOPHILS % 0.2 % (0.0-1.0); HEMATOCRIT 36.1 % (34.2-44.1); HEMOGLOBIN 11.1 g/dL (12.0-16.0); LYMPHOCYTES # (AUTO) 0.3 (1.0-3.2); LYMPHOCYTES % 5.6 % (18.0-39.1); MEAN CORPUSCULAR HEMOGLOBIN 26.9 pg (28-32); MEAN CORPUSCULAR HGB CONC 30.7 g/dL (31-35); MEAN CORPUSCULAR VOLUME 87.6 fL (81-99); MONOCYTES % 0.4 % (4.4-11.3); NEUTROPHILS # (AUTO) 5.2 (2.1-6.9); NEUTROPHILS % 93.4 % (38.7-80.0); PLATELET COUNT 361 x10e3/uL (140-360); RED BLOOD COUNT 4.12 x10e6/uL (3.6-5.1); RED CELL DISTRIBUTION WIDTH 15.3 % (11.7-14.4)
[2020-03-10] MEDS: OXYCODONE/ACETAMINOPHEN 5-325 1 EACH TABLET PO PRN ×2 (06:48→17:32)
[2020-03-10] MEDS: BUDESONIDE 0.5MG/2 ML NEB NEB SCH ×3 (06:50→19:45)
[2020-03-10] MEDS: ALBUTEROL SULF 0.083% NEB SOLN 3 ML NEB INH SCH ×4 (06:50→20:21)
[2020-03-10 06:51] LABS: ANION GAP 14.6 mmol/L (8-16); BLOOD UREA NITROGEN 10 mg/dL (7-26); BUN/CREATININE RATIO 14 (6-25); CALCIUM 8.4 mg/dL (8.4-10.2); CARBON DIOXIDE 29 mmol/L (22-29); CHLORIDE 99 mmol/L (98-107); CREATININE, SERUM 0.73 mg/dL (0.57-1.11); EST GLOMERULAR FILTRATION RATE > 60 ML/MIN (60-); GLUCOSE 156 mg/dL (74-118); POTASSIUM 4.6 mmol/L (3.5-5.1); SODIUM 138 mmol/L (136-145)
[2020-03-10] MEDS: LIDOCAINE 4% PATCH TP SCH (10:00)
[2020-03-10] MEDS: LISINOPRIL 10 MG TAB PO SCH ×2 (10:00→17:31)
[2020-03-10] MEDS: PANTOPRAZOLE SOD 40 MG TABEC PO SCH (10:00)
[2020-03-10] MEDS: ATORVASTATIN 20 MG TAB PO SCH (10:00)
[2020-03-10] MEDS: METHYLPREDNISOLONE SOD SUCC 125 MG/2ML VIAL IV SCH ×2 (10:00→20:51)
[2020-03-10] MEDS: DILTIAZEM HCL 180 MG CAP ER PO SCH (10:00)
[2020-03-10] MEDS: DOCUSATE SODIUM 100 MG CAP PO SCH ×2 (10:00→17:29)
[2020-03-10 11:44] LABS: INR 1.47; PROTHROMBIN TIME 18.9 seconds (11.9-14.5)
[2020-03-10] MEDS: IRON SUCROSE 100 MG in SODIUM CHLORIDE 0.9% 100 ML 100 ML IV SCH (12:43)
[2020-03-10] MEDS ORDERED: FUROSEMIDE INJ 10 MG/ML 4 ML VIAL IV ONE (14:00)
[2020-03-10] MEDS: LORAZEPAM 0.5 MG TAB PO PRN (14:50)
[2020-03-10] MEDS: WARFARIN SOD 5 MG TAB PO SCH (17:31)
[2020-03-10] MEDS: TEMAZEPAM 15 MG CAP PO SCH (20:51)
[2020-03-11] VITALS (9 sets, daily range): BP systolic 100–157; BP diastolic 51–82
[2020-03-11] MEDS: OXYCODONE/ACETAMINOPHEN 5-325 1 EACH TABLET PO PRN ×4 (02:48→19:28)
[2020-03-11 06:29] LABS: BASOPHILS % 0.1 % (0.0-1.0); HEMATOCRIT 33.9 % (34.2-44.1); HEMOGLOBIN 10.5 g/dL (12.0-16.0); LYMPHOCYTES # (AUTO) 0.3 (1.0-3.2); LYMPHOCYTES % 1.8 % (18.0-39.1); MEAN CORPUSCULAR HEMOGLOBIN 27.3 pg (28-32); MEAN CORPUSCULAR VOLUME 88.3 fL (81-99); MONOCYTES # (AUTO) 0.4 (0.2-0.8); MONOCYTES % 2.7 % (4.4-11.3); NEUTROPHILS # (AUTO) 14.5 (2.1-6.9); NEUTROPHILS % 94.9 % (38.7-80.0); PLATELET COUNT 382 x10e3/uL (140-360); RED BLOOD COUNT 3.84 x10e6/uL (3.6-5.1); RED CELL DISTRIBUTION WIDTH 15.5 % (11.7-14.4)
[2020-03-11 06:47] LABS: ANION GAP 11.4 mmol/L (8-16); BLOOD UREA NITROGEN 22 mg/dL (7-26); BUN/CREATININE RATIO 27 (6-25); CALCIUM 8.5 mg/dL (8.4-10.2); CARBON DIOXIDE 35 mmol/L (22-29); CHLORIDE 97 mmol/L (98-107); CREATININE, SERUM 0.83 mg/dL (0.57-1.11); EST GLOMERULAR FILTRATION RATE > 60 ML/MIN (60-); GLUCOSE 155 mg/dL (74-118); POTASSIUM 4.4 mmol/L (3.5-5.1); SODIUM 139 mmol/L (136-145)
[2020-03-11] MEDS: ARFORMOTEROL TARTRATE 15 MCG INH SCH ×2 (07:00→19:40)
[2020-03-11 08:00] LABS: LYMPHOCYTES % (MANUAL) 2 % (19-48); MONOCYTES % (MANUAL) 1 % (3.4-9.0); NEUTROPHILS % (MANUAL) 96 % (40-74)
[2020-03-11 08:01] LABS: ANISOCYTOSIS SLIGHT; METAMYELOCYTES % (MANUAL) 1 % (0-0); PLATELET ESTIMATE SLIGHTLY INCREASED; PLATELET MORPHOLOGY COMMENT FEW LARGE; RBC MORPHOLOGY COMMENT NORMAL
[2020-03-11 08:07] LABS: PLATELET CLUMPS RARE
[2020-03-11] MEDS: LISINOPRIL 10 MG TAB PO SCH ×2 (08:12→16:02)
[2020-03-11] MEDS: LORAZEPAM 0.5 MG TAB PO PRN (08:12)
[2020-03-11] MEDS: LIDOCAINE 4% PATCH TP SCH (08:12)
[2020-03-11] MEDS: DILTIAZEM HCL 180 MG CAP ER PO SCH (08:12)
[2020-03-11] MEDS: PANTOPRAZOLE SOD 40 MG TABEC PO SCH (08:12)
[2020-03-11] MEDS: ATORVASTATIN 20 MG TAB PO SCH (08:12)
[2020-03-11] MEDS: DOCUSATE SODIUM 100 MG CAP PO SCH ×2 (08:12→16:01)
[2020-03-11] MEDS ORDERED: FUROSEMIDE INJ 10 MG/ML 4 ML VIAL IV SCH (09:00)
[2020-03-11] MEDS: ALBUTEROL SULF 0.083% NEB SOLN 3 ML NEB INH SCH ×4 (11:10→21:00)
[2020-03-11] MEDS: BUDESONIDE 0.5MG/2 ML NEB NEB SCH (11:10)
[2020-03-11] MEDS: IRON SUCROSE 100 MG in SODIUM CHLORIDE 0.9% 100 ML 100 ML IV SCH (12:41)
[2020-03-11] MEDS: FUROSEMIDE INJ 10 MG/ML 4 ML VIAL IV SCH (16:01)
[2020-03-11] MEDS: WARFARIN SOD 5 MG TAB PO SCH (16:01)
[2020-03-11] MEDS: METHYLPREDNISOLONE SOD SUCC 125 MG/2ML VIAL IV SCH (17:40)
[2020-03-11] MEDS: TEMAZEPAM 15 MG CAP PO SCH (20:55)
[2020-03-12] VITALS (8 sets, daily range): BP systolic 102–148; BP diastolic 52–70
[2020-03-12] MEDS: OXYCODONE/ACETAMINOPHEN 5-325 1 EACH TABLET PO PRN ×3 (00:25→09:43)
[2020-03-12] MEDS: METHYLPREDNISOLONE SOD SUCC 125 MG/2ML VIAL IV SCH ×2 (04:59→16:37)
[2020-03-12] MEDS: ALBUTEROL SULF 0.083% NEB SOLN 3 ML NEB INH SCH ×4 (07:50→19:50)
[2020-03-12] MEDS: ARFORMOTEROL TARTRATE 15 MCG INH SCH ×2 (07:55→20:20)
[2020-03-12] MEDS: BUDESONIDE 0.5MG/2 ML NEB NEB SCH ×2 (08:03→20:05)
[2020-03-12] MEDS: ATORVASTATIN 20 MG TAB PO SCH (08:41)
[2020-03-12] MEDS: PANTOPRAZOLE SOD 40 MG TABEC PO SCH (08:41)
[2020-03-12] MEDS: LIDOCAINE 4% PATCH TP SCH (08:42)
[2020-03-12] MEDS: DILTIAZEM HCL 180 MG CAP ER PO SCH (08:43)
[2020-03-12] MEDS: FUROSEMIDE INJ 10 MG/ML 4 ML VIAL IV SCH ×2 (08:43→16:43)
[2020-03-12] MEDS: DOCUSATE SODIUM 100 MG CAP PO SCH ×2 (08:43→16:39)
[2020-03-12] MEDS: LISINOPRIL 10 MG TAB PO SCH ×2 (08:43→16:43)
[2020-03-12 10:18] LABS: BASOPHILS % 0.1 % (0.0-1.0); HEMATOCRIT 35.2 % (34.2-44.1); LYMPHOCYTES # (AUTO) 0.1 (1.0-3.2); LYMPHOCYTES % 0.8 % (18.0-39.1); MEAN CORPUSCULAR HEMOGLOBIN 27.8 pg (28-32); MEAN CORPUSCULAR HGB CONC 31.3 g/dL (31-35); MEAN CORPUSCULAR VOLUME 88.9 fL (81-99); MONOCYTES # (AUTO) 0.7 (0.2-0.8); MONOCYTES % 4.3 % (4.4-11.3); NEUTROPHILS # (AUTO) 16.1 (2.1-6.9); NEUTROPHILS % 94.2 % (38.7-80.0); PLATELET COUNT 404 x10e3/uL (140-360); RED BLOOD COUNT 3.96 x10e6/uL (3.6-5.1); RED CELL DISTRIBUTION WIDTH 15.8 % (11.7-14.4)
[2020-03-12 10:26] LABS: INR 3.13; PROTHROMBIN TIME 34.9 seconds (11.9-14.5)
[2020-03-12 10:32] LABS: MAGNESIUM 2.1 MG/DL (1.3-2.1); PHOSPHORUS 2.7 MG/DL (2.3-4.7)
[2020-03-12 10:54] LABS: ANION GAP 14.8 mmol/L (8-16); CALCIUM 8.1 mg/dL (8.4-10.2); CREATININE, SERUM 1.05 mg/dL (0.57-1.11); POTASSIUM 3.8 mmol/L (3.5-5.1)
[2020-03-12] MEDS ORDERED: SODIUM CHLORIDE 0.9% 250ML 250 ML IV ONE (14:15)
[2020-03-12] MEDS ORDERED: LORAZEPAM 0.5 MG TAB PO NR (16:00)
[2020-03-12] MEDS ORDERED: WARFARIN SOD 2.5 MG TAB PO SCH (17:00)
[2020-03-12] MEDS: TEMAZEPAM 15 MG CAP PO SCH (20:17)
[2020-03-13] VITALS (8 sets, daily range): BP systolic 97–159; BP diastolic 49–72
[2020-03-13] MEDS: LEVALBUTEROL HCL SOLN NEBU 0.63 MG/3 ML NEB INH PRN ×2 (02:45→19:40)
[2020-03-13] MEDS: OXYCODONE/ACETAMINOPHEN 5-325 1 EACH TABLET PO PRN ×4 (02:59→20:54)
[2020-03-13] MEDS: METHYLPREDNISOLONE SOD SUCC 125 MG/2ML VIAL IV SCH (05:00)
[2020-03-13 06:29] LABS: BASOPHILS % 0.1 % (0.0-1.0); HEMATOCRIT 33.8 % (34.2-44.1); HEMOGLOBIN 10.5 g/dL (12.0-16.0); LYMPHOCYTES # (AUTO) 0.3 (1.0-3.2); LYMPHOCYTES % 2.2 % (18.0-39.1); MEAN CORPUSCULAR HEMOGLOBIN 27.5 pg (28-32); MEAN CORPUSCULAR HGB CONC 31.1 g/dL (31-35); MEAN CORPUSCULAR VOLUME 88.5 fL (81-99); MONOCYTES # (AUTO) 0.6 (0.2-0.8); MONOCYTES % 5.5 % (4.4-11.3); NEUTROPHILS # (AUTO) 10.6 (2.1-6.9); NEUTROPHILS % 91.8 % (38.7-80.0); PLATELET COUNT 353 x10e3/uL (140-360); RED BLOOD COUNT 3.82 x10e6/uL (3.6-5.1); RED CELL DISTRIBUTION WIDTH 15.7 % (11.7-14.4)
[2020-03-13 07:11] LABS: ALANINE AMINOTRANSFERASE 9 IU/L (0-55); ALBUMIN 3.1 g/dL (3.5-5.0); ALKALINE PHOSPHATASE 102 IU/L (40-150); ANION GAP 10.7 mmol/L (8-16); BLOOD UREA NITROGEN 30 mg/dL (7-26); BUN/CREATININE RATIO 34 (6-25); CARBON DIOXIDE 38 mmol/L (22-29); CHLORIDE 93 mmol/L (98-107); CREATININE, SERUM 0.89 mg/dL (0.57-1.11); EST GLOMERULAR FILTRATION RATE > 60 ML/MIN (60-); GLUCOSE 180 mg/dL (74-118); POTASSIUM 3.7 mmol/L (3.5-5.1); SODIUM 138 mmol/L (136-145)
[2020-03-13] MEDS: DOCUSATE SODIUM 100 MG CAP PO SCH ×2 (08:36→17:00)
[2020-03-13] MEDS: FUROSEMIDE INJ 10 MG/ML 4 ML VIAL IV SCH ×2 (08:37→17:05)
[2020-03-13 08:39] LABS: INR 2.68
[2020-03-13 08:40] LABS: PROTHROMBIN TIME 30.8 seconds (11.9-14.5)
[2020-03-13] MEDS: LISINOPRIL 10 MG TAB PO SCH ×2 (08:41→17:00)
[2020-03-13] MEDS: DILTIAZEM HCL 180 MG CAP ER PO SCH (08:41)
[2020-03-13] MEDS: ATORVASTATIN 20 MG TAB PO SCH (08:41)
[2020-03-13] MEDS: PANTOPRAZOLE SOD 40 MG TABEC PO SCH (08:41)
[2020-03-13] MEDS: LIDOCAINE 4% PATCH TP SCH (08:45)
[2020-03-13] MEDS: ALBUTEROL SULF 0.083% NEB SOLN 3 ML NEB INH SCH ×4 (13:55→19:05)
[2020-03-13] MEDS: BUDESONIDE 0.5MG/2 ML NEB NEB SCH ×2 (14:55→19:20)
[2020-03-13] MEDS: ARFORMOTEROL TARTRATE 15 MCG INH SCH ×2 (15:00→19:35)
[2020-03-13] MEDS ORDERED: WARFARIN SOD 2.5 MG TAB PO SCH (17:00)
[2020-03-13] MEDS: TEMAZEPAM 15 MG CAP PO SCH (20:54)
[2020-03-14] VITALS: BP 103/46
[2020-03-14] MEDS: LEVALBUTEROL HCL SOLN NEBU 0.63 MG/3 ML NEB INH PRN (01:25)
[2020-03-14] MEDS ORDERED: FUROSEMIDE40 MG PO (02:04)
[2020-03-14] MEDS ORDERED: ACETAMINOPHEN325 M1 PO (02:04)
[2020-03-14] MEDS: LORAZEPAM 0.5 MG TAB PO PRN (02:05)
[2020-03-14] MEDS: OXYCODONE/ACETAMINOPHEN 5-325 1 EACH TABLET PO PRN ×2 (03:08→11:00)
[2020-03-14 04:00] VITALS: BP 144/64
[2020-03-14 06:13] LABS: BASOPHILS % 0.1 % (0.0-1.0); HEMATOCRIT 38.6 % (34.2-44.1); HEMOGLOBIN 11.7 g/dL (12.0-16.0); LYMPHOCYTES # (AUTO) 0.5 (1.0-3.2); LYMPHOCYTES % 3.9 % (18.0-39.1); MEAN CORPUSCULAR HEMOGLOBIN 27.4 pg (28-32); MEAN CORPUSCULAR HGB CONC 30.3 g/dL (31-35); MEAN CORPUSCULAR VOLUME 90.4 fL (81-99); MONOCYTES # (AUTO) 1.1 (0.2-0.8); MONOCYTES % 8.9 % (4.4-11.3); NEUTROPHILS # (AUTO) 10.5 (2.1-6.9); NEUTROPHILS % 86.4 % (38.7-80.0); PLATELET COUNT 418 x10e3/uL (140-360); RED BLOOD COUNT 4.27 x10e6/uL (3.6-5.1); RED CELL DISTRIBUTION WIDTH 15.7 % (11.7-14.4)
[2020-03-14 06:44] LABS: ANION GAP 14.1 mmol/L (8-16); CREATININE, SERUM 0.93 mg/dL (0.57-1.11); PHOSPHORUS 4.1 MG/DL (2.3-4.7); POTASSIUM 3.1 mmol/L (3.5-5.1)
[2020-03-14 08:09] VITALS: BP 146/75
[2020-03-14] MEDS: LISINOPRIL 10 MG TAB PO SCH (08:33)
[2020-03-14] MEDS: DILTIAZEM HCL 180 MG CAP ER PO SCH (08:34)
[2020-03-14] MEDS: ATORVASTATIN 20 MG TAB PO SCH (08:39)
[2020-03-14] MEDS: DOCUSATE SODIUM 100 MG CAP PO SCH (08:39)
[2020-03-14] MEDS: PANTOPRAZOLE SOD 40 MG TABEC PO SCH (08:39)
[2020-03-14] MEDS: LIDOCAINE 4% PATCH TP SCH (08:39)
[2020-03-14] MEDS: FUROSEMIDE INJ 10 MG/ML 4 ML VIAL IV SCH (08:39)
[2020-03-14] MEDS: ALBUTEROL SULF 0.083% NEB SOLN 3 ML NEB INH SCH (09:35)
[2020-03-14] MEDS: ARFORMOTEROL TARTRATE 15 MCG INH SCH (09:45)
[2020-03-14] MEDS ORDERED: POTASSIUM CHLORIDE 20 MEQ TAB CR PO ONE (09:45)
[2020-03-14] MEDS: BUDESONIDE 0.5MG/2 ML NEB NEB SCH (09:55)
[2020-03-14 11:07] VITALS: BP 146/75
[2020-03-14 11:51] VITALS: BP 132/65
[2020-03-14] MEDS ORDERED: ACETAZOLAMIDE SODIUM 500 MG/VIAL IV ONE (12:30)
[2020-03-14] MEDS ORDERED: POTASSIUM CHLORIDE 20 MEQ TAB CR PO STA (12:30)
[2020-03-14] MEDS ORDERED: ACETAZOLAMIDE500 MG IV (12:59)
[2020-03-14] MEDS ORDERED: ACETAZOLAMIDE250 MG PO (13:06)
[2020-03-14] MEDS ORDERED: ACETAZOLAMIDE 250 MG TAB PO ONE (14:15)
[2020-03-15] MEDS ORDERED: ACETAZOLAMIDE 250 MG TAB PO SCH (09:00)
== END 2020-03-14 14:30 | disposition home or self-care (01) | DRG 190 ==
LOC: MED/SURG3 16:51
PROVIDERS: ADMIT Internal Medicine; ATTEND Internal Medicine
DX: J44.1 Chronic obstructive pulmonary disease with (acute) exacerbation (principal); J96.20 Acute and chronic respiratory failure, unspecified whether with hypoxia or hypercapnia; I50.43 Acute on chronic combined systolic (congestive) and diastolic (congestive) heart failure; I25.810 Atherosclerosis of coronary artery bypass graft(s) without angina pectoris; I48.20 Chronic atrial fibrillation, unspecified; M80.88XA Other osteoporosis with current pathological fracture, vertebra(e), initial encounter for fracture; I48.0 Paroxysmal atrial fibrillation; Z66 Do not resuscitate; Z95.2 Presence of prosthetic heart valve; I11.0 Hypertensive heart disease with heart failure; F17.210 Nicotine dependence, cigarettes, uncomplicated; Z99.81 Dependence on supplemental oxygen; K21.9 Gastro-esophageal reflux disease without esophagitis; Z95.1 Presence of aortocoronary bypass graft; Z95.5 Presence of coronary angioplasty implant and graft; Z79.01 Long term (current) use of anticoagulants; Z88.5 Allergy status to narcotic agent; Z88.0 Allergy status to penicillin; Z88.8 Allergy status to other drugs, medicaments and biological substances; Z86.73 Personal history of transient ischemic attack (TIA), and cerebral infarction without residual deficits; F41.9 Anxiety disorder, unspecified; D50.9 Iron deficiency anemia, unspecified; I73.9 Peripheral vascular disease, unspecified; M54.9 Dorsalgia, unspecified
CPT/HCPCS: 36415; 71046; 72157; 72158; 80048; 80053; 80061; 81001; 82948; 83036; 83540; 83605; 83735; 84100; 84443; 84466; 85025; 85610; 85730; 87040; 93005; 93306; 94640; 94660; 96365; 96376; 99251; J1756; J1940; J2270; J2405; J2930; J7050; U0002